=== PATIENT | male | born 1965 | race Caucasian/White ===

== ENCOUNTER 2016-11-24 20:41 | Emergency (ER) | payer OTHER ==
[2016-11-24 21:36] VITALS: BP 130/77; PULSE 102; TEMP 100; BMI 26.2
[2016-11-24] MEDS ORDERED: KETOROLAC TROMETHAMINE 30 MG/1 ML VIAL IM ONE (22:44)
--- NOTE | 2016-11-24 22:44 | PDOC ---
History of Present Illness <Sanket Wong - Last Filed: 11/24/16 22:40> - General History Source: Patient, Old Records Exam Limitations: No Limitations - History of Present Illness Initial Comments: 11/24/16 22:44 The patient is a 51 year old male, from [facility], with past medical history of schizophrenia and psych issues who presents to the ED with chronic back pain since age 14. The patient states that he is not on medication for his chronic medication. The patient states that he last saw a doctor for his pain one month ago and that he was advised to have surgery. The patient states that he would like to be admitted here and would like to have his surgery here too. He reports that he has a [place] john and would like to have it taken out and have a new one put in. The patient denies any trauma and has no neurological symptoms. <Cristian Murdock - Last Filed: 11/25/16 00:03> - General Chief Complaint: Chronic pain Stated Complaint: BACK PAIN Time Seen by Provider: 11/24/16 22:33 Past History - Psycho/Social/Smoking Cessation Hx Anxiety: No Suicidal Ideation: No Smoking History: Never smoked Have you smoked in the past 12 months: No Information on smoking cessation initiated: No Hx Alcohol Use: No Drug/Substance Use Hx: No Substance Use Type: None <Sanket Wong - Last Filed: 11/24/16 22:40> <Cristian Murdock - Last Filed: 11/25/16 00:03> - Past Medical History Allergies/Adverse Reactions: Allergies Allergy/AdvReac Type Severity Reaction Status Date / Time No Known Allergies Allergy Verified 02/18/16 01:06 Home Medications: Ambulatory Orders Benztropine Mesylate [Cogentin -] 0.5 mg PO DAILY 11/24/16 Cyclobenzaprine HCl [Flexeril -] 10 mg PO TID #7 tablet 11/24/16 Diclofenac Sodium/Misoprostol [Arthrotec 75 mg-200 Mcg Tab] 1 each PO BID #20 tablet. 11/24/16 [place] Carbonate [Eskalith -] 450 mg PO BID 11/24/16 Olanzapine [Zyprexa] 10 mg PO HS 11/24/16 Review of Systems - Review of Systems Able to Perform ROS?: Yes Musculoskeletal: Yes: Symptoms Reported, See HPI, Back Pain <Cristian Murdock - Last Filed: 11/25/16 00:03> *Physical Exam - Vital Signs Last Vital Signs Temp Pulse Resp BP Pulse Ox 100 F H 102 H 16 130/77 96 11/24/16 21:29 11/24/16 21:29 11/24/16 21:29 11/24/16 21:29 11/24/16 21:29 - Physical Exam General Appearance: Yes: Nourished, Appropriately Dressed. No: Apparent Distress HEENT: positive: Normal ENT Inspection Neck: positive: Supple. negative: Tender Respiratory/Chest: positive: Lungs Clear, Normal Breath Sounds. negative: Respiratory Distress Cardiovascular: positive: Regular Rhythm, Regular Rate, Tachycardia Gastrointestinal/Abdominal: positive: Soft. negative: Tender Musculoskeletal: positive: Normal Inspection, Muscle Spasm. negative: CVA Tenderness, Vertebral Tenderness Integumentary: positive: Normal Color Neurologic: positive: Fully Oriented, Alert, Motor Strength 5/5. negative: Normal Mood/Affect (flat affect), Sensory Deficit <Sanket Wong - Last Filed: 11/24/16 22:40> - Vital Signs Last Vital Signs Temp Pulse Resp BP Pulse Ox 100 F H 102 H 16 130/77 96 11/24/16 21:29 11/24/16 21:29 11/24/16 21:29 11/24/16 21:29 11/24/16 21:29 <Cristian Murdock - Last Filed: 11/25/16 00:03> Progress Note - Progress Note Progress Note: chronic back pain w/ no appropriate follow up or treatment will start on nsaid's and refer to clinic <Sanket Wong - Last Filed: 11/24/16 22:40> *DC/Admit/Observation/Transfer <Sanket Wong - Last Filed: 11/24/16 22:40> <Cristian Murdock - Last Filed: 11/25/16 00:03> Diagnosis at time of Disposition: Back pain Qualifiers: Back pain location: low back pain Chronicity: chronic Back pain laterality: unspecified Sciatica presence: without sciatica Qualified Code(s): M54.5 - Low back pain - Discharge Dispostion Disposition: HOME Condition at time of disposition: Stable - Prescriptions Prescriptions: Diclofenac Sodium/Misoprostol [Arthrotec 75 mg-200 Mcg Tab] 1 each PO BID #20 tablet. Cyclobenzaprine HCl [Flexeril -] 10 mg PO TID #7 tablet - Referrals Referrals: STAFF,NOT ON [Primary Care Provider] - Stanford Ayala MD [Staff Physician] - Call tomorrow - Patient Instructions Additional Instructions: TAKE MEDICATIONS PRESCRIBED AVOID PROLONG PERIODS OF TIME IN SAME POSITION DO NOT LIFT WEIGHTS ICE OR HEAT TO AREA (WHATEVER WORKS BETTER FOR YOU) CALL YOUR DOCTOR TO START PHYSICAL THERAPY SELINA LAY DOWN ON EITHER SIDE, KNEES BENT, STRAIGHT SPINE, CUSHION BETWEEN YUR KNEES RETURN IF WORSENING PAIN OR NEW SYMPTOMS LIKE INABILITY TO URINATE OR HOLD YOUR URINE
[2016-11-24] MEDS ORDERED: DEXAMETHASONE 4 MG TABLET (FP) PO ONE (22:45)
[2016-11-24] MEDS ORDERED: KETOROLAC TROMETHAMINE 30 MG/1 ML VIAL ONE (22:57)
== END 2016-11-25 00:23 | disposition home or self-care (01) ==
LOC: JER 20:41
PROC: 3E0233Z Introduction of Anti-inflammatory into Muscle, Percutaneous Approach (ICD-10-PCS; principal; 2016-11-24)
DX: M54.5 Low back pain (principal)
CPT/HCPCS: 96372; 99281-25

== ENCOUNTER 2017-11-07 03:22 | Emergency (ER) | payer OTHER ==
[2017-11-07 03:30] VITALS: TEMP 99.1; BMI 27.8
--- NOTE | 2017-11-07 03:50 | PDOC ---
History of Present Illness - General Chief Complaint: Cold Symptoms Stated Complaint: FLU LIKE SYMPTOMS Time Seen by Provider: 11/07/17 03:47 History Source: Patient - History of Present Illness Initial Comments: 11/07/17 04:50 52-year-old male with no medical history presents to the emergency department complaining of general malaise, subjective fever/chills x2d without headaches, dizziness, lightheadedness, facial pain, rhinorrhea, nasal congestion, earaches , cough, neck pain/stiffness, back pain, chest pain, shortness of breath, abdominal pains, flank pains, urinary symptoms. Patient states he had abdominal discomfort until he had a BM in the ED. Timing/Duration: reports: other (x2d ago) Past History - Past Medical History Allergies/Adverse Reactions: Allergies Allergy/AdvReac Type Severity Reaction Status Date / Time No Known Allergies Allergy Verified 11/07/17 03:24 Home Medications: Ambulatory Orders [place] Carbonate [Eskalith -] 600 mg PO BID 11/24/16 Olanzapine [Zyprexa] 20 mg PO HS 11/24/16 COPD: No Psychiatric Problems: Yes (anxiety, bipolar, schizo affective) Other medical history: chr back pain - Suicide/Smoking/Psychosocial Hx Smoking History: Never smoked Have you smoked in the past 12 months: No Hx Alcohol Use: No Drug/Substance Use Hx: No Substance Use Type: None Review of Systems - Review of Systems Able to Perform ROS?: Yes Comments:: 11/07/17 04:53 CONSTITUTIONAL: +generalized weakness, malaise Absent: fever, chills, diaphoresis, loss of appetite HEENT: Absent: rhinorrhea, nasal congestion, throat pain, throat swelling, difficulty swallowing, mouth swelling, ear pain, eye pain, visual Changes CARDIOVASCULAR: Absent: chest pain, loss of consciousness, palpitations, irregular heart rate, peripheral edema RESPIRATORY: Absent: cough, shortness of breath, dyspnea with exertion, orthopnea, wheezing, stridor, hemoptysis GASTROINTESTINAL: Absent: abdominal pain, abdominal distension, nausea, vomiting, diarrhea, constipation, melena, hematochezia GENITOURINARY: Absent: dysuria, frequency, urgency, hesitancy, hematuria, flank pain, genital pain MUSCULOSKELETAL: Absent: myalgia, arthralgia, joint swelling SKIN: Absent: rash, itching, pallor HEMATOLOGIC/IMMUNOLOGIC: Absent: easy bleeding, easy bruising, lymphadenopathy, frequent infections ENDOCRINE: Absent: unexplained weight gain, unexplained weight loss, heat intolerance, cold intolerance NEUROLOGIC: Absent: headache, focal weakness or paresthesias, dizziness, unsteady gait, seizure, mental status changes, bladder or bowel incontinence PSYCHIATRIC: Absent: anxiety, depression, suicidal or homicidal ideation, hallucinations. Is the patient limited Ecuadorean proficient: No *Physical Exam - Vital Signs Last Vital Signs Temp Pulse Resp BP Pulse Ox 99.1 F 97 H 18 132/87 96 11/07/17 03:23 11/07/17 03:23 11/07/17 03:23 11/07/17 03:23 11/07/17 03:23 - Physical Exam Comments: 11/07/17 04:53 GENERAL: Well developed, well nourished. Awake and alert. No acute distress. HEENT: Normocephalic, atraumatic. PERRLA, EOMI. No conjunctival pallor. Sclera are non- icteric. Moist mucous membranes. Oropharynx is clear. NECK: Supple. Full ROM. No JVD. Carotid pulses 2+ and symmetric, without bruits. No thyromegaly. No lymphadenopathy. CARDIOVASCULAR: Regular rate and rhythm. No murmurs, rubs, or gallops. Distal pulses are 2+ and symmetric. PULMONARY: No evidence of respiratory distress. Lungs clear to auscultation bilaterally. No wheezing, rales or rhonchi. ABDOMINAL: Soft. Non-tender. Non-distended. No rebound or guarding. No organomegaly. Normoactive bowel sounds. MUSCULOSKELETAL Normal range of motion at all joints. No bony deformities or tenderness. No CVA tenderness. EXTREMITIES: No cyanosis. No clubbing. No edema. No calf tenderness. SKIN: Warm and dry. Normal capillary refill. No rashes. No jaundice. NEUROLOGICAL: Alert, awake, appropriate. Cranial nerves 2-12 intact. No deficits to light touch and temperature in face, upper extremities and lower extremities. No motor deficits in the in face, upper extremities and lower extremities. Normoreflexic in the upper and lower extremities. Normal speech. Toes are down- going bilaterally. Gait is normal without ataxia. PSYCHIATRIC: Cooperative. Good eye contact. Appropriate mood and affect. ED Treatment Course - LABORATORY CBC & Chemistry Diagram: 11/07/17 04:11/07/17 04:09 *DC/Admit/Observation/Transfer Diagnosis at time of Disposition: Viral syndrome - Discharge Dispostion Disposition: HOME Condition at time of disposition: Stable Admit: No - Referrals - Patient Instructions Printed Discharge Instructions: DI for Viral Syndrome Additional Instructions: Rest Increase fluids Tylenol alternating with Motrin every 6 hours as needed for fever Return to the ER for severe/persistent/worsening symptoms - Post Discharge Activity
[2017-11-07 04:20] LABS: BASO % 0.8 % (0-2.0); EOS % 2.8 % (0-4.5); HEMATOCRIT 39.7 % (35.4-49); LYMPH % 28.8 % (8-40); MCHC 32.9 g/dl (32.0-35.9); MEAN CELL VOLUME 88.4 fl (80-96); MEAN PLT VOLUME 6.9 fl (7.5-11.1); MONO % 12.9 % (3.8-10.2); NEUT % 54.7 % (42.8-82.8); PLATELET COUNT 298 K/MM3 (134-434); RBC 4.49 M/mm3 (4.00-5.60); RDW 14.4 % (11.9-15.9); WHITE BLOOD COUNT 6.9 K/mm3 (4.0-10.0)
[2017-11-07 04:41] LABS: ALBUMIN 3.2 g/dl (3.4-5.0); ALK PHOS 73 U/L (45-117); AMYLASE 81 U/L (25-115); ANION GAP 7 (8-16); BILIRUBIN,TOTAL 0.2 mg/dL (0.2-1.0); BLOOD UREA NITROGEN 9 mg/dL (7-18); CALCIUM 8.1 mg/dL (8.5-10.1); CHLORIDE 105 mmol/L (98-107); CO2 31 mmol/L (21-32); CREATININE 0.9 mg/dL (0.7-1.3); GLUCOSE,RANDOM 106 mg/dL (74-106); LIPASE 166 U/L (73-393); POTASSIUM 3.5 mmol/L (3.5-5.1); SGOT/AST 17 U/L (15-37); SGPT/ALT 44 U/L (12-78); SODIUM 143 mmol/L (136-145); TOT PROT 6.7 g/dl (6.4-8.2)
[2017-11-07 05:56] VITALS: BP 116/90; PULSE 83
[2017-11-07 06:26] LABS: URINE APPEARANCE CLEAR; URINE BILIRUBIN NEGATIVE (NEGATIVE); URINE BLOOD NEGATIVE (NEGATIVE); URINE COLOR LTYELLOW; URINE GLUCOSE (UA) NEGATIVE (NEGATIVE); URINE KETONE TRACE (NEGATIVE); URINE LEUK ESTERASE NEGATIVE (NEGATIVE); URINE NITRITE NEGATIVE (NEGATIVE); URINE PROTEIN NEGATIVE (NEGATIVE); URINE UROBILINOGEN NEGATIVE mg/dL (0.2-1.0)
== END 2017-11-07 06:02 | disposition home or self-care (01) ==
LOC: JER 03:22
DX: J34.89 Other specified disorders of nose and nasal sinuses (principal); R09.81 Nasal congestion; F25.9 Schizoaffective disorder, unspecified; F41.9 Anxiety disorder, unspecified; F31.9 Bipolar disorder, unspecified
CPT/HCPCS: 36415; 80053; 81003; 82150; 83690; 85025; 87086; 87804; 99281-25

== ENCOUNTER 2017-11-09 00:32 | Emergency (ER) | payer OTHER ==
[2017-11-09 00:43] VITALS: BMI 21.1
--- NOTE | 2017-11-09 01:02 | PDOC ---
History of Present Illness <Tarah Olvera Diamond - Last Filed: 11/09/17 01:02> - General History Source: Patient Exam Limitations: No Limitations - History of Present Illness Initial Comments: 11/09/17 01:09 The patient is a 52 year old male with a significant past medical history of schizophrenia who presents to the ED with progressively worsening cold like symptoms for several days. Patient was recently seen in the ED yesterday for similar symptoms, flu culture was negative, and he was discharged home. He comes into the ED today because he states his symptoms have worsened. He reports headache, general malaise, nasal congestion, rhinorrhea, abdominal pain , shortness of breath, nausea, one episode of non bilious vomiting and watery stool. Denies any other symptoms. <Taco Ladd - Last Filed: 11/09/17 02:08> <Macrina Jensen - Last Filed: 11/09/17 03:46> - General Chief Complaint: Pain Stated Complaint: HEADACHE,STOMACH PAIN,RUNNY NOSE Time Seen by Provider: 11/09/17 00:40 Past History - Past Medical History COPD: No Psychiatric Problems: Yes (anxiety, bipolar, schizo affective) - Suicide/Smoking/Psychosocial Hx Smoking History: Never smoked Have you smoked in the past 12 months: No Information on smoking cessation initiated: No Hx Alcohol Use: No Drug/Substance Use Hx: No Substance Use Type: None <Jean Claude Olverajarocho Coronadoh - Last Filed: 11/09/17 01:02> <Taco Ladd - Last Filed: 11/09/17 02:08> <Macrina Jensen - Last Filed: 11/09/17 03:46> - Past Medical History Allergies/Adverse Reactions: Allergies Allergy/AdvReac Type Severity Reaction Status Date / Time No Known Allergies Allergy Verified 11/09/17 00:38 Home Medications: Ambulatory Orders [place] Carbonate [Eskalith -] 600 mg PO BID 11/24/16 Olanzapine [Zyprexa] 20 mg PO HS 11/24/16 Fluticasone Prop 0.05% Nasal [Flonase -] 1 - 2 spray NS BID #1 spray.pump Review of Systems - Review of Systems Able to Perform ROS?: Yes Comments:: 11/09/17 01:09 CONSTITUTIONAL: + malaise Absent: fever, chills, diaphoresis, generalized weakness,loss of appetite HEENT: + nasal congestion, rhinorrhea Absent: , throat pain, throat swelling, difficulty swallowing, mouth swelling, ear pain, eye pain, visual Changes CARDIOVASCULAR: Absent: chest pain, syncope, palpitations, irregular heart rate, lightheadedness , peripheral edema RESPIRATORY: + shortness of breath Absent: cough, dyspnea with exertion, orthopnea, wheezing, stridor, hemoptysis GASTROINTESTINAL: + abdominal pain, nausea, vomiting, diarrhea. Absent: abdominal distension, constipation, melena, hematochezia GENITOURINARY: Absent: dysuria, frequency, urgency, hesitancy, hematuria, flank pain, genital pain MUSCULOSKELETAL: Absent: myalgia, arthralgia, joint swelling SKIN: Absent: rash, itching, pallor HEMATOLOGIC/IMMUNOLOGIC: Absent: easy bleeding, easy bruising, lymphadenopathy, frequent infections ENDOCRINE: Absent: unexplained weight gain, unexplained weight loss, heat intolerance, cold intolerance NEUROLOGIC: + headache Absent: focal weakness or paresthesias, dizziness, unsteady gait, seizure, mental status changes, bladder or bowel incontinence PSYCHIATRIC: Absent: anxiety, depression, suicidal or homicidal ideation, hallucinations. All Other Systems: Reviewed and Negative <Taco Ladd - Last Filed: 11/09/17 02:08> *Physical Exam - Vital Signs Last Vital Signs Temp Pulse Resp BP Pulse Ox 98.7 F 89 18 127/87 95 11/09/17 00:47 11/09/17 00:47 11/09/17 00:47 11/09/17 00:47 11/09/17 00:47 <Tarah Olvera - Last Filed: 11/09/17 01:02> - Vital Signs Last Vital Signs Temp Pulse Resp BP Pulse Ox 98.7 F 89 18 127/87 95 11/09/17 00:47 11/09/17 00:47 11/09/17 00:47 11/09/17 00:47 11/09/17 00:47 - Physical Exam Comments: 11/09/17 01:42 GENERAL: Well developed, well nourished. Awake and alert. No acute distress. HEENT:+ nasal congestion Normocephalic, atraumatic. PERRLA, EOMI. No conjunctival pallor. Sclera are non- icteric. Moist mucous membranes. Oropharynx is clear. NECK: Supple. Full ROM. No JVD. Carotid pulses 2+ and symmetric, without bruits. No thyromegaly. NCo lymphadenopathy. CARDIOVASCULAR: Regular rate and rhythm. No murmurs, rubs, or gallops. Distal pulses are 2+ and symmetric. PULMONARY: + cough Lungs clear to auscultation bilaterally. No wheezing, rales or rhonchi. ABDOMINAL: Soft. Non-tender. Non-distended. No rebound or guarding. No organomegaly. Normoactive bowel sounds. MUSCULOSKELETAL Normal range of motion at all joints. No bony deformities or tenderness. No CVA tenderness. EXTREMITIES: No cyanosis. No clubbing. No edema. No calf tenderness. SKIN: Warm and dry. Normal capillary refill. No rashes. No jaundice. NEUROLOGICAL: Alert, awake, appropriate. Cranial nerves 2-12 intact. No deficits to light touch and temperature in face, upper extremities and lower extremities. No motor deficits in the in face, upper extremities and lower extremities. Normoreflexic in the upper and lower extremities. Normal speech. Toes are down- going bilaterally. Gait is normal without ataxia. PSYCHIATRIC: Cooperative. Good eye contact. Appropriate mood and affect. <Taco Ladd - Last Filed: 11/09/17 02:08> - Vital Signs Last Vital Signs Temp Pulse Resp BP Pulse Ox 98.7 F 89 18 127/87 95 11/09/17 00:47 11/09/17 00:47 11/09/17 00:47 11/09/17 00:47 11/09/17 00:47 <Macrina Jensen - Last Filed: 11/09/17 03:46> ED Treatment Course - ADDITIONAL ORDERS Additional order review: Laboratory Results 11/09/17 00:57 Urine Color Yellow Urine Appearance Clear Urine pH 6.0 Ur Specific [place] 1.018 Urine Protein Negative Urine Glucose (UA) Negative Urine Ketones Trace H Urine Blood Negative Urine Nitrite Negative Urine Bilirubin Negative Urine Urobilinogen 4.0 e.u/dl Ur Leukocyte Esterase Negative - RADIOLOGY Radiology Studies Ordered: Category Date Time Status SINUS CT W/O CONTRAST [CT] Stat CT Scan 11/09/17 02:29 Taken <Macrina Jensen - Last Filed: 11/09/17 03:46> Medical Decision Making - Medical Decision Making 11/09/17 03:24 Pt's labs and exam and CXR are normal. Pt has nasal congestion on CT scan and he will be treated with afrin in the ER and he will go home with EMT appt and I will give an ENT referral. <Macrina Jensen - Last Filed: 11/09/17 03:46> *DC/Admit/Observation/Transfer <Tarah Olvera - Last Filed: 11/09/17 01:02> - Attestations Scribe Attestion: 11/09/17 01:42 Documentation prepared by Taco Ladd, acting as medical coding auditor for Tarah Olvera MD <Taco Ladd - Last Filed: 11/09/17 02:08> - Discharge Dispostion Admit: No <Macrina Jensen - Last Filed: 11/09/17 03:46> Diagnosis at time of Disposition: Nasal congestion - Discharge Dispostion Disposition: HOME Condition at time of disposition: Stable - Patient Instructions Printed Discharge Instructions: DI for Nasal Congestion
[2017-11-09 01:11] LABS: URINE APPEARANCE CLEAR; URINE BILIRUBIN NEGATIVE (NEGATIVE); URINE BLOOD NEGATIVE (NEGATIVE); URINE COLOR YELLOW; URINE GLUCOSE (UA) NEGATIVE (NEGATIVE); URINE KETONE TRACE (NEGATIVE); URINE LEUK ESTERASE NEGATIVE (NEGATIVE); URINE NITRITE NEGATIVE (NEGATIVE); URINE PROTEIN NEGATIVE (NEGATIVE); URINE UROBILINOGEN 4.0 E.U/dl mg/dL (0.2-1.0)
[2017-11-09 01:13] VITALS: BP 127/87; PULSE 89; TEMP 98.7
[2017-11-09] MEDS ORDERED: OXYMETAZOLINE 0.05% NASAL SOLUTION 15 ML BOTTLE NS ONE (03:02)
== END 2017-11-09 05:01 | disposition home or self-care (01) ==
LOC: JER 00:32
DX: J34.89 Other specified disorders of nose and nasal sinuses (principal); R09.81 Nasal congestion
CPT/HCPCS: 70486-TC; 71046-TC; 81003; 99281-25

== ENCOUNTER 2017-12-05 16:19 | Emergency (ER) | payer OTHER ==
[2017-12-05 17:05] VITALS: BP 123/74; PULSE 92; TEMP 98.1; BMI 27.8
--- NOTE | 2017-12-05 17:16 | PDOC ---
History of Present Illness - General Chief Complaint: Pain Stated Complaint: PAIN Time Seen by Provider: 12/05/17 17:06 History Source: Patient Exam Limitations: No Limitations - History of Present Illness Initial Comments: CHIEF COMPLAINT: 52 y/o afebrile male c/o right hip pain for a few months, much worse this past week. HISTORY OF PRESENT ILLNESS: The patient states he went to [facility] last week and had an xray which showed arthritis. he was discharged with tramadol and a referral to see Dr. Greenwood, however, Dr. Greenwood doesn't take his insurance. He denies trauma to hip, slip and fall, f/c, n/v/d, back pain, numbness/tingling in extremities, saddle anesthesia and bowel/bladder incontinence. Past History - Past Medical History Allergies/Adverse Reactions: Allergies Allergy/AdvReac Type Severity Reaction Status Date / Time No Known Allergies Allergy Verified 11/09/17 00:38 Home Medications: Ambulatory Orders [place] Carbonate [Eskalith -] 600 mg PO BID 11/24/16 Olanzapine [Zyprexa] 20 mg PO HS 11/24/16 Fluticasone Prop 0.05% Nasal [Flonase -] 1 - 2 spray NS BID #1 spray.pump Cyclobenzaprine HCl [Flexeril 10 mg] 10 mg PO TID #20 tablet 12/05/17 COPD: No Psychiatric Problems: Yes (anxiety, bipolar, schizo affective) - Suicide/Smoking/Psychosocial Hx Smoking History: Never smoked Have you smoked in the past 12 months: No Information on smoking cessation initiated: No Hx Alcohol Use: No Drug/Substance Use Hx: No Substance Use Type: None Review of Systems - Review of Systems Able to Perform ROS?: Yes Constitutional: No: Symptoms Reported HEENTM: No: Symptoms Reported ABD/GI: No: Symptoms Reported : No: Symptoms Reported Musculoskeletal: Yes: Joint Pain (right hip). No: Back Pain *Physical Exam - Vital Signs Last Vital Signs Temp Pulse Resp BP Pulse Ox 98.1 F 92 H 20 123/74 12/05/17 17:01 12/05/17 17:01 12/05/17 17:01 12/05/17 17:01 - Physical Exam Comments: 52 y/o male, ambulatory to the ER with limp General Appearance: Yes: Nourished, Appropriately Dressed. No: Apparent Distress Musculoskeletal: positive: Other (Pain reproduced with palpation of right greater trochanter. Pain also reproduced with palpation of right lumbar paravertebral muscles. No midline lumbar vertebral TTP. No leg length discrepancy.). negative: CVA Tenderness, Vertebral Tenderness Neurologic: positive: hydraulic mechanic II-XII NML intact, Fully Oriented, Alert, Motor Strength 5/5. negative: Numbness, Sensory Deficit Medical Decision Making - Medical Decision Making A/P: 52 y/o male with progressively worsening arthritis of right hip as well as right low back pain. Will give patient flexeril in the ER. Will provide him with referral to Dr. Hensley who takes Medicaid. Will call rx for flexeril and suggested he take with tramadol. Pt instructed to return to the ER with any worsening or concerning symptoms. The patient verbalizes understanding of all instructions, has no further questions and is awaiting discharge. *DC/Admit/Observation/Transfer Diagnosis at time of Disposition: Hip pain, right, Arthritis Back pain Qualifiers: Back pain location: low back pain Chronicity: acute Back pain laterality: right Sciatica presence: with sciatica Sciatica laterality: sciatica of right side Qualified Code(s): M54.41 - Lumbago with sciatica, right side - Discharge Dispostion Disposition: HOME Condition at time of disposition: Good - Referrals Referrals: Favio Hensley MD [Staff Physician] - - Patient Instructions Printed Discharge Instructions: DI for Arthritis, DI for Back Pain With Sciatica Additional Instructions: Discharge Instructions: -A prescription for a muscle relaxer was sent to your pharmacy; please take it along with Tramadol -Please call Dr. Hensley on Thursday and schedule an appointment for Thursday between 9a-12p OR 12p-4p -Apply ice and heating pad to affected areas -Return to the ER with any worsening or concerning symptoms - Post Discharge Activity
[2017-12-05] MEDS ORDERED: CYCLOBENZAPRINE HCL 10 MG TABLET (FP) PO ONE (17:31)
[2017-12-05] MEDS ORDERED: CYCLOBENZAPRINE HCL 10 MG TABLET (FP) ONE (17:35)
== END 2017-12-05 18:09 | disposition home or self-care (01) ==
LOC: JERFT 16:19
DX: M13.851 Other specified arthritis, right hip (principal); M54.41 Lumbago with sciatica, right side
CPT/HCPCS: 99281-25

== ENCOUNTER 2018-01-27 19:27 | Emergency (ER) | payer OTHER ==
--- NOTE | 2018-01-27 19:37 | PDOC ---
Rapid Medical Evaluation Time Seen by Provider: 01/27/18 19:34 Medical Evaluation: Allergies Allergy/AdvReac Type Severity Reaction Status Date / Time No Known Allergies Allergy Verified 11/09/17 00:38 01/27/18 19:34 I have performed a brief in-person evaluation of this patient. The patient presents with a chief complaint of: tremors x "years", worse today, saw doc "Paresh" 2 weeks ago, denies drug/alcohol use, hx of schizophrenia/ bipolar Pertinent physical exam findings: tremors to b/l hands I have ordered the following: nothing The patient will proceed to the ED for further evaluation. Discharge Disposition - Diagnosis Tremor of both hands - Referrals - Patient Instructions - Post Discharge Activity
[2018-01-27 19:38] VITALS: BP 126/90; PULSE 71; TEMP 99.1; BMI 28.7
--- NOTE | 2018-01-27 20:14 | PDOC ---
History of Present Illness - General Chief Complaint: Tremors Stated Complaint: TREMORS Time Seen by Provider: 01/27/18 19:34 History Source: Patient - History of Present Illness Initial Comments: 01/27/18 21:51 52 year old male History of schizophrenia, anxiety complaining of hand tremors for the last 2 years worse over the last week. Patient one week ago was admitted at [facility] for auditory hallucinations. Patient reports that he is seeing visions of" myself in room 3 and then dying at home." " dont you see im shaking like a leaf". patient denies dizziness, diaphoresis, chest pain, NVD,abdominal pain, urinary symptoms. denies SI or HI. reports that visions do not tell him to hurt himself. patient reports that he has an appointment with Ingrid Bella in [facility] tomorrow at 9 am. patient is currently on abilify and Klonipin BID Past History - Past Medical History Allergies/Adverse Reactions: Allergies Allergy/AdvReac Type Severity Reaction Status Date / Time No Known Allergies Allergy Verified 01/27/18 19:35 Home Medications: Ambulatory Orders [place] Carbonate [Eskalith -] 600 mg PO BID 11/24/16 Olanzapine [Zyprexa] 20 mg PO HS 11/24/16 Fluticasone Prop 0.05% Nasal [Flonase -] 1 - 2 spray NS BID #1 spray.pump Cyclobenzaprine HCl [Flexeril 10 mg] 10 mg PO TID #20 tablet 12/05/17 COPD: No Psychiatric Problems: Yes (anxiety, bipolar, schizo affective) - Suicide/Smoking/Psychosocial Hx Smoking History: Never smoked Have you smoked in the past 12 months: No Information on smoking cessation initiated: No Hx Alcohol Use: No Drug/Substance Use Hx: No Substance Use Type: None *Physical Exam - Vital Signs Last Vital Signs Temp Pulse Resp BP Pulse Ox 99.1 F 71 16 126/90 100 01/27/18 19:35 01/27/18 19:35 01/27/18 19:35 01/27/18 19:35 01/27/18 19:35 - Physical Exam General Appearance: Yes: Appropriately Dressed Respiratory/Chest: positive: Normal Breath Sounds Cardiovascular: positive: Regular Rhythm, Regular Rate Gastrointestinal/Abdominal: positive: Normal Bowel Sounds, Soft Musculoskeletal: positive: Normal Inspection Extremity: positive: Normal Capillary Refill, Normal Inspection, Normal Range of Motion Integumentary: positive: Normal Color, Dry, Warm Neurologic: positive: Fully Oriented, Alert, Normal Mood/Affect, Motor Strength 5/5, Other (tremors noted to increased with talking. decreased tremors noted with distractions. ) ED Treatment Course - LABORATORY CBC & Chemistry Diagram: 01/27/18 21:17 01/27/18 21:17 Medical Decision Making - Medical Decision Making A: tremors/ anxiety with no SI or HI P: cbc cmp ua utox 01/27/18 22:41 patient received Klonipin PO. appears less anxious watching TV. patient is taking a cab home and has appointment with psychiatry at 9am. 01/27/18 22:44 *DC/Admit/Observation/Transfer Diagnosis at time of Disposition: Tremor of both hands, Anxiety - Discharge Dispostion Disposition: HOME - Referrals - Patient Instructions Printed Discharge Instructions: DI for Anxiety -- Adult Additional Instructions: please follow up with your psychiatrist tomorrow at 9am as planned. return to the ER if symptoms worsen. - Post Discharge Activity
[2018-01-27] MEDS ORDERED: clonazePAM 0.5 MG TABLET PO ONE (20:58)
[2018-01-27] MEDS ORDERED: clonazePAM 0.5 MG TABLET ONE (21:09)
[2018-01-27 21:30] LABS: BASO % 0.8 % (0-2.0); EOS % 0.6 % (0-4.5); HEMATOCRIT 39.5 % (35.4-49); HEMOGLOBIN 13.7 GM/dL (11.7-16.9); LYMPH % 31.8 % (8-40); MCH 30.6 pg (25.7-33.7); MCHC 34.8 g/dl (32.0-35.9); MEAN PLT VOLUME 7.1 fl (7.5-11.1); MONO % 8.5 % (3.8-10.2); NEUT % 58.3 % (42.8-82.8); PLATELET COUNT 390 K/MM3 (134-434); RBC 4.48 M/mm3 (4.00-5.60); RDW 14.7 % (11.9-15.9)
[2018-01-27 21:55] LABS: ANION GAP 6 (8-16); BLOOD UREA NITROGEN 15 mg/dL (7-18); CALCIUM 9.3 mg/dL (8.5-10.1); CHLORIDE 105 mmol/L (98-107); CO2 30 mmol/L (21-32); GLUCOSE,RANDOM 95 mg/dL (74-106); POTASSIUM 4.4 mmol/L (3.5-5.1); SGPT/ALT 107 U/L (12-78); SODIUM 141 mmol/L (136-145)
[2018-01-27 21:58] LABS: ALK PHOS 108 U/L (45-117); BILIRUBIN,TOTAL 0.1 mg/dL (0.2-1.0); SGOT/AST 44 U/L (15-37); TOT PROT 7.8 g/dl (6.4-8.2)
[2018-01-27 22:08] LABS: COCAINE, UR NEGATIVE ng/ml (CUTOFF=300); METHADONE, UR NEGATIVE ng/ml (CUTOFF=300); OPIATES, URI NEGATIVE ng/ml (CUTOFF=300); PHENCYCLIDINE,URINE NEGATIVE ng/ml (CUTOFF=25); URINE AMPHETAMINES NEGATIVE ng/ml (CUTOFF=500); URINE BARBITURATES NEGATIVE ng/ml (CUTOFF=200); URINE BENZODIAZEPINES NEGATIVE ng/ml (CUTOFF=200)
[2018-01-27 22:26] LABS: URINE APPEARANCE CLEAR; URINE BILIRUBIN NEGATIVE (<2.0 mg/dL); URINE BLOOD NEGATIVE (NEGATIVE); URINE COLOR LTYELLOW; URINE GLUCOSE (UA) NEGATIVE (NEGATIVE); URINE KETONE NEGATIVE (NEGATIVE); URINE LEUK ESTERASE NEGATIVE (NEGATIVE); URINE NITRITE NEGATIVE (NEGATIVE); URINE PROTEIN NEGATIVE (NEGATIVE); URINE UROBILINOGEN NEGATIVE mg/dL (0.2-1.0)
== END 2018-01-27 23:01 | disposition home or self-care (01) ==
LOC: JER 19:27
DX: R25.1 Tremor, unspecified (principal); F41.9 Anxiety disorder, unspecified; F20.9 Schizophrenia, unspecified
CPT/HCPCS: 36415; 80053; 80307; 81003; 85025; 99281-25

== ENCOUNTER 2018-01-30 05:18 | Emergency (ER) | payer OTHER ==
[2018-01-30 05:40] VITALS: BMI 28.7
[2018-01-30] MEDS ORDERED: ACETAMINOPHEN 1000 MG/100 ML VIAL (NON FORMULARY) IVPB ONE (05:47)
[2018-01-30] MEDS ORDERED: SODIUM CHLORIDE 1,000 ML IV STA (05:47)
--- NOTE | 2018-01-30 06:11 | PDOC ---
History of Present Illness - General Chief Complaint: Weakness Stated Complaint: DIZZINESS WEAKNESS CHEST PAIN Time Seen by Provider: 01/30/18 05:34 - History of Present Illness Initial Comments: 01/30/18 06:40 "Patient is a 52 year old male, from [facility], with a significant past medical history of Schizophrenia, chronic tremor, who presents to the ED with complaints of chest pain and palpitations that began last night at 11pm. Patient reports experiencing sudden onset of chest pain while at home, prompting the facility to send him to the ED for further evaluation. Pt also endorses chills and subjective fevers with nausea. Denies vomiting but endorses 2 episodes of nonbloody diarrhea today. Denies abdominal pain. Pt is very tremulous at time of interview but states this is chronic. Denies ETOH use, denies h/o withdrawal, denies other substance abuse. Allergies: None Social history: No smoking. No alcohol. No illicit drugs Surgical history: Left hip surgery. PMD: None Past History - Past Medical History Allergies/Adverse Reactions: Allergies Allergy/AdvReac Type Severity Reaction Status Date / Time No Known Allergies Allergy Verified 01/30/18 05:39 Home Medications: Ambulatory Orders [place] Carbonate [Eskalith -] 600 mg PO BID 11/24/16 Olanzapine [Zyprexa] 20 mg PO HS 11/24/16 Fluticasone Prop 0.05% Nasal [Flonase -] 1 - 2 spray NS BID #1 spray.pump Cyclobenzaprine HCl [Flexeril 10 mg] 10 mg PO TID #20 tablet 12/05/17 Penicillin V Potassium [Pen Vee K -] 500 mg PO QID #28 tablet 01/30/18 COPD: No Psychiatric Problems: Yes (anxiety, bipolar, schizo affective) - Suicide/Smoking/Psychosocial Hx Smoking History: Never smoked Have you smoked in the past 12 months: No Information on smoking cessation initiated: No Hx Alcohol Use: No Drug/Substance Use Hx: No Substance Use Type: None Review of Systems - Review of Systems Comments:: 01/30/18 06:55 "GENERAL/CONSTITUTIONAL: + fever and chills. No weakness. HEAD, EYES, EARS, NOSE AND THROAT: No change in vision. No ear pain or discharge. No sore throat. CARDIOVASCULAR: + chest pain and palpitations, no shortness of breath. RESPIRATORY: No cough, wheezing, or hemoptysis. GASTROINTESTINAL: + nausea, + diarrhea, no vomiting, constipation. GENITOURINARY: No dysuria, frequency, or change in urination. MUSCULOSKELETAL: No joint or muscle swelling or pain. No neck or back pain. SKIN: No rash NEUROLOGIC: No headache, vertigo, loss of consciousness, or change in strength/ sensation. ENDOCRINE: No increased thirst. No abnormal weight change. HEMATOLOGIC/LYMPHATIC: No anemia, easy bleeding, or history of blood clots. ALLERGIC/IMMUNOLOGIC: No hives or skin allergy. " *Physical Exam - Vital Signs Last Vital Signs Temp Pulse Resp BP Pulse Ox 98.9 F 116 H 20 138/88 96 01/30/18 05:39 01/30/18 05:39 01/30/18 05:39 01/30/18 05:39 01/30/18 05:39 - Physical Exam Comments: 01/30/18 06:56 "GENERAL: Awake, alert, and fully oriented, in no acute distress. HEAD: No signs of trauma EYES: PERRLA, EOMI, sclera anicteric, conjunctiva clear ENT: Auricles normal inspection, hearing grossly normal, nares patent, oropharynx clear without exudates. Moist mucosa NECK: Nontender, no stepoffs, Normal ROM, supple, no lymphadenopathy, JVD, or masses LUNGS: Breath sounds equal, clear to auscultation bilaterally. No wheezes, and no crackles HEART: Regular rate and rhythm, normal S1 and S2, no murmurs, rubs or gallops ABDOMEN: Soft, nontender, normoactive bowel sounds. No guarding, no rebound. No masses EXTREMITIES: Normal range of motion, no edema. No clubbing or cyanosis. No cords, erythema, or tenderness NEUROLOGICAL: Cranial nerves II through XII intact. 5/5 strength and sensation in all extremities, Normal speech, normal gait, normal cerebellar function SKIN: Warm, Dry, normal turgor, no rashes or lesions noted. " Heart Score/ECG Review - History History: Slightly suspicious - Electrocardiogram EKG: Normal - Age Age: 45-65 - Risk Factors Based on the list above the patient has:: No risk factors known - Troponin Troponin: </= normal limit - Score Heart Score - Total: 1 - ECG Impressions Comment:: 01/30/18 06:57 NSR, no CHIP/STDs,no TWIs, axis wnl, intervals wnl, rate 109 ED Treatment Course - LABORATORY CBC & Chemistry Diagram: 01/30/18 06:25 01/30/18 06:25 - RADIOLOGY Radiology Studies Ordered: Category Date Time Status CHEST PA & LAT [RAD] Stat Radiology 01/30/18 05:47 Ordered Medical Decision Making - Medical Decision Making 01/30/18 06:57 52 M with fevers, chills, chest pain, palpitations, nausea, and diarrhea. Vitals notable for tachycardia. Will w/u for infectious process, though pt afebrile in ED. Consider acute ETOH/benzo withdrawal vs acute sympathomimetic intoxication, as pt presented to ED 3 days ago with tremors and responded to benzos. Pt with no ischemic changes on EKG, but will r/o ACS with trops given complaint of chest pain. - Labs, trop, TSH - CXR, UA - IVF, tylenol - trial of benzos 01/30/18 07:05 Pt signed out to oncoming attending, pending labs, imaging, and re-evaluation *DC/Admit/Observation/Transfer Diagnosis at time of Disposition: Tremor of both hands, Dental caries - Discharge Dispostion Disposition: HOME Condition at time of disposition: Stable - Prescriptions Prescriptions: Penicillin V Potassium [Pen Vee K -] 500 mg PO QID #28 tablet - Referrals - Patient Instructions Printed Discharge Instructions: DI for Tooth Decay - Post Discharge Activity
[2018-01-30 06:34] LABS: BASO % 0.7 % (0-2.0); EOS % 1.6 % (0-4.5); HEMATOCRIT 38.5 % (35.4-49); LYMPH % 31.3 % (8-40); MCH 29.7 pg (25.7-33.7); MCHC 33.7 g/dl (32.0-35.9); MONO % 9.3 % (3.8-10.2); NEUT % 57.1 % (42.8-82.8); PLATELET COUNT 352 K/MM3 (134-434); RBC 4.38 M/mm3 (4.00-5.60); WHITE BLOOD COUNT 8.9 K/mm3 (4.0-10.0)
[2018-01-30] MEDS ORDERED: ACETAMINOPHEN INJECTION 100 ML IVPB ONE (06:38)
[2018-01-30 07:03] LABS: ALBUMIN 3.6 g/dl (3.4-5.0); ANION GAP 6 (8-16); BILIRUBIN,TOTAL 0.3 mg/dL (0.2-1.0); BLOOD UREA NITROGEN 12 mg/dL (7-18); CALCIUM 8.7 mg/dL (8.5-10.1); CHLORIDE 107 mmol/L (98-107); CO2 29 mmol/L (21-32); CREATININE 0.9 mg/dL (0.7-1.3); GLUCOSE,RANDOM 111 mg/dL (74-106); LIPASE 157 U/L (73-393); POTASSIUM 3.9 mmol/L (3.5-5.1); SGOT/AST 44 U/L (15-37); SGPT/ALT 94 U/L (12-78); SODIUM 142 mmol/L (136-145); TOT PROT 7.4 g/dl (6.4-8.2)
[2018-01-30 07:12] LABS: ALK PHOS 98 U/L (45-117)
[2018-01-30 07:50] LABS: URINE APPEARANCE CLEAR; URINE BILIRUBIN NEGATIVE (<2.0 mg/dL); URINE BLOOD NEGATIVE (NEGATIVE); URINE COLOR DKYELLOW; URINE GLUCOSE (UA) NEGATIVE (NEGATIVE); URINE KETONE TRACE (NEGATIVE); URINE LEUK ESTERASE NEGATIVE (NEGATIVE); URINE NITRITE NEGATIVE (NEGATIVE)
[2018-01-30 08:25] LABS: URINE PROTEIN 1+ (NEGATIVE)
[2018-01-30 08:47] LABS: URINE HYALINE CAST 6 /lpf; URINE MUCUS MANY
[2018-01-30 09:33] LABS: COCAINE, UR NEGATIVE ng/ml (CUTOFF=300); METHADONE, UR NEGATIVE ng/ml (CUTOFF=300); OPIATES, URI NEGATIVE ng/ml (CUTOFF=300); PHENCYCLIDINE,URINE NEGATIVE ng/ml (CUTOFF=25); URINE AMPHETAMINES NEGATIVE ng/ml (CUTOFF=500); URINE BARBITURATES NEGATIVE ng/ml (CUTOFF=200); URINE BENZODIAZEPINES NEGATIVE ng/ml (CUTOFF=200)
--- NOTE | 2018-01-30 09:56 | PDOC ---
*Physical Exam - Vital Signs Last Vital Signs Temp Pulse Resp BP Pulse Ox 98.9 F 116 H 20 138/88 96 01/30/18 05:39 01/30/18 05:39 01/30/18 05:39 01/30/18 05:39 01/30/18 05:39 ED Treatment Course - LABORATORY CBC & Chemistry Diagram: 01/30/18 06:25 01/30/18 06:25 - ADDITIONAL ORDERS Additional order review: Laboratory Results 01/30/18 01/30/18 01/30/18 07:27 07:27 06:25 Sodium 142 Potassium 3.9 Chloride 107 Carbon Dioxide 29 Anion Gap 6 L BUN 12 Creatinine 0.9 Creat Clearance w eGFR > 60 Random Glucose 111 H Calcium 8.7 Total Bilirubin 0.3 D AST 44 H ALT 94 H Alkaline Phosphatase 98 Creatine Kinase 618 H Troponin I < 0.02 Total Protein 7.4 Albumin 3.6 Lipase 157 TSH 1.99 Urine Color Dkyellow Urine Appearance Clear Urine pH 5.0 D Ur Specific [place] 1.034 Urine Protein 1+ H Urine Glucose (UA) Negative Urine Ketones Trace H Urine Blood Negative Urine Nitrite Negative Urine Bilirubin Negative Urine Urobilinogen 2.0 Ur Leukocyte Esterase Negative Urine WBC (Auto) 1 Urine RBC (Auto) None Hyaline Casts 6 Urine Mucus Many Opiates Screen Negative Methadone Screen Negative Barbiturate Screen Negative Phencyclidine Screen Negative Ur Amphetamines Screen Negative MDMA (Ecstasy) Screen Positive Benzodiazepines Screen Negative Cocaine Screen Negative U Marijuana (THC) Screen Negative 01/30/18 06:25 Sodium Potassium Chloride Carbon Dioxide Anion Gap BUN Creatinine Creat Clearance w eGFR Random Glucose Calcium Total Bilirubin AST ALT Alkaline Phosphatase Creatine Kinase Cancelled Troponin I Cancelled Total Protein Albumin Lipase TSH Urine Color Urine Appearance Urine pH Ur Specific [place] Urine Protein Urine Glucose (UA) Urine Ketones Urine Blood Urine Nitrite Urine Bilirubin Urine Urobilinogen Ur Leukocyte Esterase Urine WBC (Auto) Urine RBC (Auto) Hyaline Casts Urine Mucus Opiates Screen Methadone Screen Barbiturate Screen Phencyclidine Screen Ur Amphetamines Screen MDMA (Ecstasy) Screen Benzodiazepines Screen Cocaine Screen U Marijuana (THC) Screen 01/30/18 06:25 RBC 4.38 MCV 88.0 MCHC 33.7 RDW 15.0 MPV 7.0 L Neutrophils % 57.1 Lymphocytes % 31.3 Monocytes % 9.3 Eosinophils % 1.6 D Basophils % 0.7 - Medications Given in the ED: ED Medications Discontinued Medications Generic Name Dose Route Start Last Admin Trade Name Jaxson PRN Reason Stop Dose Admin Acetaminophen 1,000 mg 01/30/18 05:47 01/30/18 06:48 Ofirmev Injection - IVPB 01/30/18 05:48 1,000 mg ONCE ONE Administration Sodium Chloride 1,000 mls @ 1,000 mls/hr 01/30/18 05:47 01/30/18 06:48 Normal Saline - IV 01/30/18 06:46 1,000 mls/hr ASDIR STA Administration Lorazepam 1 mg 01/30/18 07:00 01/30/18 07:31 Ativan Injection - IVPUSH 01/30/18 07:01 1 mg ONCE ONE Administration Medical Decision Making - Medical Decision Making 01/30/18 13:52 Results d/w patient. He states he does not use drugs and has not taken any unknown substances. He has tremors in his hands which are baseline. Serial troponins are negative. He has tooth decay on R side, recommended outpatient dental f/u. Stable for DC home. *DC/Admit/Observation/Transfer Diagnosis at time of Disposition: Tremor of both hands, Dental caries - Discharge Dispostion Disposition: HOME Condition at time of disposition: Stable Admit: No - Prescriptions Prescriptions: Penicillin V Potassium [Pen Vee K -] 500 mg PO QID #28 tablet - Referrals - Patient Instructions Printed Discharge Instructions: DI for Tooth Decay - Post Discharge Activity
[2018-01-30 14:49] VITALS: BP 138/98; PULSE 100; TEMP 98.6
--- NOTE | 2018-02-01 12:51 | EKG ---
Test Reason : Blood Pressure : / mmHG Vent. Rate : 109 BPM Atrial Rate : 109 BPM P-R Int : 134 ms QRS Dur : 078 ms QT Int : 336 ms P-R-T Axes : 051 063 037 degrees QTc Int : 452 ms SINUS TACHYCARDIA OTHERWISE NORMAL ECG NO PREVIOUS ECGS AVAILABLE Confirmed by LINO MARTIN MD ([id number]) on 02/01/2018 12:51:10 PM Referred By: Confirmed By:LINO MARTIN MD
== END 2018-01-30 15:13 | disposition home or self-care (01) ==
LOC: JER 05:18
PROC: 3E033NZ Introduction of Analgesics, Hypnotics, Sedatives into Peripheral Vein, Percutaneous Approach (ICD-10-PCS; principal; 2018-01-30)
PROC: 3E033NZ Introduction of Analgesics, Hypnotics, Sedatives into Peripheral Vein, Percutaneous Approach (ICD-10-PCS; 2018-01-30)
DX: G25.2 Other specified forms of tremor (principal); F41.9 Anxiety disorder, unspecified; F31.9 Bipolar disorder, unspecified; F20.9 Schizophrenia, unspecified
CPT/HCPCS: 36415; 71046-TC-FY; 80053; 80307; 81003; 81015; 82550; 82553; 83690; 84443; 84484; 85025; 93005; 93010; 96374; 99285-25; G0480; J0131; J7030

== ENCOUNTER 2018-02-18 19:59 | Emergency (ER) | payer OTHER ==
[2018-02-18 20:27] VITALS: PULSE 89; BMI 27.3
--- NOTE | 2018-02-18 21:09 | PDOC ---
History of Present Illness - General History Source: Patient Exam Limitations: No Limitations - History of Present Illness Initial Comments: 02/18/18 21:24 The patient is a 52 year old male, with a significant past medical history of Schizophrenia who presents to the emergency department with, 4 hours of nausea, vomiting, chest pain, and abdominal pain. The patient describes his chest pain as pressure-like, non-radiating, with associated shortness of breath. He reports similar episodes in the past. He denies having hypertension and diabetes. He denies any recent fevers, chills , headache or dizziness. He denies any recent diarrhea or constipation. He denies any recent dysuria, frequency, urgency or hematuria. Allergies: NKA Social History: Nonsmoker. Denies EtOH use and recreational drug use. <Sosa Schreiber - Last Filed: 02/18/18 23:59> - General History Source: Patient <JermainAlistair hernandez - Last Filed: 02/19/18 01:30> - General Chief Complaint: Nausea/Vomiting Stated Complaint: VOMITING Time Seen by Provider: 02/18/18 21:07 Past History <Sosa Schreiber - Last Filed: 02/18/18 23:59> - Past Medical History COPD: No Psychiatric Problems: Yes (anxiety, bipolar, schizo affective) - Suicide/Smoking/Psychosocial Hx Smoking History: Never smoked Have you smoked in the past 12 months: No Hx Alcohol Use: No Drug/Substance Use Hx: No Substance Use Type: None <Alistair Garvey - Last Filed: 02/19/18 01:30> - Past Medical History Allergies/Adverse Reactions: Allergies Allergy/AdvReac Type Severity Reaction Status Date / Time No Known Allergies Allergy Verified 01/30/18 05:39 Home Medications: Ambulatory Orders [place] Carbonate [Eskalith -] 600 mg PO BID 11/24/16 Olanzapine [Zyprexa] 20 mg PO HS 11/24/16 Fluticasone Prop 0.05% Nasal [Flonase -] 1 - 2 spray NS BID #1 spray.pump Cyclobenzaprine HCl [Flexeril 10 mg] 10 mg PO TID #20 tablet 12/05/17 Penicillin V Potassium [Pen Vee K -] 500 mg PO QID #28 tablet 01/30/18 Ondansetron [Zofran *Odt*] 4 mg SL TID #30 od.tablet 02/19/18 Review of Systems - Review of Systems Able to Perform ROS?: Yes Comments:: 02/18/18 21:25 CONSTITUTIONAL: Absent: fever, no chills, no fatigue EYES: Absent: visual changes ENT: Absent: ear pain, no sore throat CARDIOVASCULAR: Present: Chest pain. Absent: no palpitations RESPIRATORY: Present: SOB Absent: cough GI: Present: Nausea, vomiting, abdominal pain. Absent: no constipation, no diarrhea GENITOURINARY: Absent: dysuria, no frequency, no hematuria MUSKULOSKELETAL: Absent: back pain, no arthralgia, no myalgia SKIN: Absent: rash NEURO: Absent: headache All Other Systems: Reviewed and Negative <Sosa Schreiber - Last Filed: 02/18/18 23:59> *Physical Exam - Vital Signs Last Vital Signs Temp Pulse Resp BP Pulse Ox 98 F 89 120/80 99 02/18/18 20:00 02/18/18 20:00 02/18/18 20:00 02/18/18 20:00 - Physical Exam Comments: 02/18/18 21:27 +GENERAL: Mild distress. Diaphoretic. Well-nourished. HEENT: Normocephalic, atraumatic. PERRL, EOM intact. CARDIOVASCULAR: Normal S1, S2. Regular rate and rhythm. PULMONARY: Clear to auscultation bilaterally. ABDOMEN: Soft, non-distended, non-tender. EXTREMITIES: Normal ROM in all four extremities. No gross deformities. SKIN: Warm, dry. No rash NEUROLOGICAL: No focal neurological deficits. <Sosa Schreiber - Last Filed: 02/18/18 23:59> - Vital Signs Last Vital Signs Temp Pulse Resp BP Pulse Ox 98 F 89 120/80 99 02/18/18 20:00 02/18/18 20:00 02/18/18 20:00 02/18/18 20:00 <Alistair Garvey - Last Filed: 02/19/18 01:30> ED Treatment Course - LABORATORY CBC & Chemistry Diagram: 02/18/18 22:00 02/18/18 22:00 <Sosa Schreiber - Last Filed: 02/18/18 23:59> - LABORATORY CBC & Chemistry Diagram: 02/18/18 22:00 02/18/18 22:00 <Alistair Garvey - Last Filed: 02/19/18 01:30> Medical Decision Making - Medical Decision Making 02/18/18 23:59 EKG performed at: 18 Feb 2018 at 23:36:57 Vent Rate 89 bpm NC interval 156 ms QRS duration 84 ms QT/QTc 348/423 ms P-R-T axes 50 60 48 Normal sinus rhythm. Possible left atrial enlargement Early repolarization Borderline ECG <Sosa Schreiber - Last Filed: 02/18/18 23:59> - Medical Decision Making 02/19/18 01:29 Dr. Garvey: The scribe's documentation has been prepared under my direction and personally reviewed by me in its entirery. I confirm that the note above accurately reflects all work, treatment, procedures, and medical decision making performed by me. Patient now feel better. pt was able to tolerate food and water. Pt will be discharge. <Alistair Garvey - Last Filed: 02/19/18 01:30> *DC/Admit/Observation/Transfer - Attestations Scribe Attestion: 02/18/18 21:28 Documentation prepared by Sosa Schreiber, acting as medical billing manager for Alistair Garvey DO. <Sosa Schreiber - Last Filed: 02/18/18 23:59> - Discharge Dispostion Admit: No <Alistair Garvey - Last Filed: 02/19/18 01:30> Diagnosis at time of Disposition: Abdominal pain Qualifiers: Abdominal location: epigastric Qualified Code(s): R10.13 - Epigastric pain Nausea & vomiting Qualifiers: Vomiting type: unspecified Vomiting Intractability: non-intractable Qualified Code(s): R11.2 - Nausea with vomiting, unspecified - Discharge Dispostion Disposition: HOME Condition at time of disposition: Stable - Referrals Referrals: Bola Carter MD [Staff Physician] - Bony Patiño MD [Staff Physician] - - Patient Instructions Printed Discharge Instructions: DI for Nausea -- Adult, DI for Vomiting -- Adult, DI for Abdominal Pain-Adult
[2018-02-18] MEDS ORDERED: ONDANSETRON 4 MG/2 ML VIAL IVPUSH STA (21:10)
[2018-02-18] MEDS ORDERED: ASPIRIN 81 MG CHEWABLE TABLETS PO ONE (21:42)
[2018-02-18 22:13] LABS: BASO % 0.9 % (0-2.0); EOS % 0.9 % (0-4.5); HEMATOCRIT 41.3 % (35.4-49); LYMPH % 35.3 % (8-40); MCH 30.2 pg (25.7-33.7); MCHC 33.9 g/dl (32.0-35.9); MEAN CELL VOLUME 89.1 fl (80-96); MEAN PLT VOLUME 7.2 fl (7.5-11.1); MONO % 6.8 % (3.8-10.2); NEUT % 56.1 % (42.8-82.8); PLATELET COUNT 385 K/MM3 (134-434); RBC 4.63 M/mm3 (4.00-5.60); RDW 14.2 % (11.9-15.9); WHITE BLOOD COUNT 9.3 K/mm3 (4.0-10.0)
[2018-02-18 22:32] LABS: INR 0.98 (0.82-1.09); PROTHROMBIN TIME (PATIENT) 11.1 SEC (9.7-13.0)
[2018-02-18 22:43] LABS: AMYLASE 75 U/L (25-115); LIPASE 187 U/L (73-393)
[2018-02-18 22:44] LABS: N-TERMINAL BNP 10.99 pg/ml (5-125)
[2018-02-18 22:52] LABS: MAGNESIUM 2.4 mg/dL (1.8-2.4)
[2018-02-19 00:23] LABS: ANION GAP 13 (8-16); BILIRUBIN,TOTAL 0.2 mg/dL (0.2-1.0); BLOOD UREA NITROGEN 10 mg/dL (7-18); CHLORIDE 108 mmol/L (98-107); CO2 23 mmol/L (21-32); CREATININE 1.1 mg/dL (0.7-1.3); GLUCOSE,RANDOM 98 mg/dL (74-106); SGPT/ALT 69 U/L (12-78); SODIUM 144 mmol/L (136-145); TOT PROT 7.8 g/dl (6.4-8.2)
[2018-02-19 00:24] LABS: ALK PHOS 107 U/L (45-117)
[2018-02-19 00:25] LABS: POTASSIUM 4.6 mmol/L (3.5-5.1); SGOT/AST 35 U/L (15-37)
[2018-02-19 01:44] VITALS: BP 128/76; TEMP 98.2
--- NOTE | 2018-02-19 09:32 | EKG ---
Test Reason : Blood Pressure : / mmHG Vent. Rate : 089 BPM Atrial Rate : 089 BPM P-R Int : 156 ms QRS Dur : 084 ms QT Int : 348 ms P-R-T Axes : 050 060 048 degrees QTc Int : 423 ms NORMAL SINUS RHYTHM POSSIBLE LEFT ATRIAL ENLARGEMENT EARLY REPOLARIZATION WHEN COMPARED WITH ECG OF 30-JAN-2018 06:51, NO SIGNIFICANT CHANGE WAS FOUND Confirmed by CIERRA GUERRERO MD ([id number]) on 02/19/2018 9:32:15 AM Referred By: Confirmed By:CIERRA GUERRERO MD
== END 2018-02-19 01:44 | disposition home or self-care (01) ==
LOC: JER 19:59
PROC: 3E033GC Introduction of Other Therapeutic Substance into Peripheral Vein, Percutaneous Approach (ICD-10-PCS; principal; 2018-02-18)
DX: R10.13 Epigastric pain (principal); R11.2 Nausea with vomiting, unspecified
CPT/HCPCS: 36415; 80053; 82150; 82550; 82553; 83690; 83735; 83880; 84484; 85025; 85610; 86850; 86900; 86901; 93005; 93010; 99282-25

== ENCOUNTER 2018-03-01 00:43 | Emergency (ER) | payer OTHER ==
[2018-03-01 00:47] VITALS: BP 136/80; PULSE 94; TEMP 97.9; BMI 27.8
--- NOTE | 2018-03-01 01:06 | PDOC ---
History of Present Illness - History of Present Illness Initial Comments: 03/01/18 01:12 Patient is a 52 M, who was BIBA for abdominal pain with PMHx of Bipolar disorder and Schizophrenia, denies any surgical history. He states that he vomited a total of 3 times today (6, 8, 9 o'clock). He also reports a sore throat, runny nose, and cough. He was here 11 days ago for abdominal pain, () his labs were normal. Denies any fever, chills, chest pain, shortness of breath, dysuria, or diarrhea. PCP: Dr. Arlyn Stewart 03/01/18 01:20 <Jenni Snyder - Last Filed: 03/01/18 01:12> <Tarah Olvera - Last Filed: 03/01/18 02:43> - General Chief Complaint: Pain, Acute Stated Complaint: ABDOMINAL PAIN Time Seen by Provider: 03/01/18 00:56 Past History <Jenni Snyder - Last Filed: 03/01/18 01:12> - Past Medical History COPD: No Psychiatric Problems: Yes (anxiety, bipolar, schizo affective) - Suicide/Smoking/Psychosocial Hx Smoking History: Unknown if ever smoked Have you smoked in the past 12 months: No Hx Alcohol Use: No Drug/Substance Use Hx: No Substance Use Type: None <Tarah Olvera - Last Filed: 03/01/18 02:43> - Past Medical History Allergies/Adverse Reactions: Allergies Allergy/AdvReac Type Severity Reaction Status Date / Time No Known Allergies Allergy Verified 03/01/18 00:45 Home Medications: Ambulatory Orders [place] Carbonate [Eskalith -] 600 mg PO BID 11/24/16 Olanzapine [Zyprexa] 20 mg PO HS 11/24/16 Review of Systems - Review of Systems Comments:: 03/01/18 01:14 CONSTITUTIONAL: Absent: fever, chills, diaphoresis, generalized weakness, malaise, loss of appetite HEENT: Present: rhinorrhea, nasal congestion, sore throat Absent:throat swelling, difficulty swallowing, mouth swelling, ear pain, eye pain, visual changes CARDIOVASCULAR: Absent: chest pain, syncope, palpitations, irregular heart rate, lightheadedness , peripheral edema RESPIRATORY: Present: cough Absent: shortness of breath, dyspnea with exertion, orthopnea, wheezing, stridor, hemoptysis GASTROINTESTINAL: Present: mild epigastric pain, vomitting (3x) Absent: abdominal distension, nausea, diarrhea, constipation, melena, hematochezia GENITOURINARY: Absent: dysuria, frequency, urgency, hesitancy, hematuria, flank pain, genital pain MUSCULOSKELETAL: Absent: myalgia, arthralgia, joint swelling SKIN: Absent: rash, itching, pallor HEMATOLOGIC/IMMUNOLOGIC: Absent: easy bleeding, easy bruising, lymphadenopathy, frequent infections ENDOCRINE: Absent: unexplained weight gain, unexplained weight loss, heat intolerance, cold intolerance NEUROLOGIC: Absent: headache, focal weakness or paresthesias, dizziness, unsteady gait, seizure, mental status changes, bladder or bowel incontinence <Jenni Snyder - Last Filed: 03/01/18 01:12> *Physical Exam - Vital Signs Last Vital Signs Temp Pulse Resp BP Pulse Ox 97.9 F 94 H 22 136/80 98 03/01/18 00:45 03/01/18 00:45 03/01/18 00:45 03/01/18 00:45 03/01/18 00:45 - Physical Exam Comments: 03/01/18 01:18 GENERAL: Well developed, well nourished. Awake and alert. No acute distress. HEENT: Normocephalic, atraumatic. PERRLA, EOMI. No conjunctival pallor. Sclera are non- icteric. Moist mucous membranes. Oropharynx is mildy errythematous without exudates. NECK: Supple. Full ROM. No JVD. Carotid pulses 2+ and symmetric, without bruits. No thyromegaly. No lymphadenopathy. CARDIOVASCULAR: Regular rate and rhythm. No murmurs, rubs, or gallops. Distal pulses are 2+ and symmetric. PULMONARY: No evidence of respiratory distress. Lungs clear to auscultation bilaterally. No wheezing, rales or rhonchi. ABDOMINAL: Soft. Mild epigastric tenderness. Non-distended. No rebound or guarding. No organomegaly. Normoactive bowel sounds. MUSCULOSKELETAL Normal range of motion at all joints. No bony deformities or tenderness. No CVA tenderness. EXTREMITIES: No cyanosis. No clubbing. No edema. No calf tenderness. SKIN: Warm and dry. Normal capillary refill. No rashes. No jaundice. NEUROLOGICAL: Alert, awake, appropriate. Cranial nerves 2-12 intact. No deficits to light touch and temperature in face, upper extremities and lower extremities. No motor deficits in the in face, upper extremities and lower extremities. Normoreflexic in the upper and lower extremities. Normal speech. Toes are down-going bilaterally. Gait is normal without ataxia. PSYCHIATRIC: Cooperative. Flat affect <Jenni Snyder - Last Filed: 03/01/18 01:12> - Vital Signs Last Vital Signs Temp Pulse Resp BP Pulse Ox 97.9 F 94 H 22 136/80 98 03/01/18 00:45 03/01/18 00:45 03/01/18 00:45 03/01/18 00:45 03/01/18 00:45 <Tarah Olvera - Last Filed: 03/01/18 02:43> ED Treatment Course - LABORATORY CBC & Chemistry Diagram: 03/01/18 01:20 03/01/18 01:20 <Tarah Olvera - Last Filed: 03/01/18 02:43> Medical Decision Making - Medical Decision Making 03/01/18 02:08 52 yo male vomited x 3 tonight. No fever,no chills,no diarrhea cbc wnl chemistries ast,alt sl bumped pt now wants to eat because he is hungry plan po challenge <Tarah Olvera - Last Filed: 03/01/18 02:43> *DC/Admit/Observation/Transfer - Attestations Scribe Attestion: 03/01/18 01:20 Documentation prepared by Jenni Snyder, acting as medical staffing coordinator for Tarah Olvera MD. <Jenni Snyder - Last Filed: 03/01/18 01:12> <Tarah Olvera - Last Filed: 03/01/18 02:43> Diagnosis at time of Disposition: Nausea & vomiting Qualifiers: Vomiting type: unspecified Vomiting Intractability: non-intractable Qualified Code(s): R11.2 - Nausea with vomiting, unspecified - Discharge Dispostion Disposition: HOME Condition at time of disposition: Stable - Patient Instructions Printed Discharge Instructions: DI for Vomiting -- Adult Additional Instructions: please follow up with your regular physician
[2018-03-01] MEDS ORDERED: ONDANSETRON 4 MG/2 ML VIAL IVPUSH STA (01:09)
[2018-03-01] MEDS ORDERED: ONDANSETRON 4 MG/2 ML VIAL ONE (01:13)
[2018-03-01 01:40] LABS: BASO % 1.1 % (0-2.0); EOS % 1.9 % (0-4.5); HEMATOCRIT 38.5 % (35.4-49); HEMOGLOBIN 13.3 GM/dL (11.7-16.9); LYMPH % 35.3 % (8-40); MCH 30.7 pg (25.7-33.7); MCHC 34.6 g/dl (32.0-35.9); MEAN CELL VOLUME 88.8 fl (80-96); MEAN PLT VOLUME 7.5 fl (7.5-11.1); NEUT % 53.7 % (42.8-82.8); PLATELET COUNT 297 K/MM3 (134-434); RBC 4.33 M/mm3 (4.00-5.60); RDW 14.4 % (11.9-15.9); WHITE BLOOD COUNT 9.2 K/mm3 (4.0-10.0)
[2018-03-01 01:51] LABS: URINE APPEARANCE CLEAR; URINE BILIRUBIN NEGATIVE (<2.0 mg/dL); URINE COLOR YELLOW; URINE GLUCOSE (UA) NEGATIVE (NEGATIVE); URINE KETONE NEGATIVE (NEGATIVE); URINE LEUK ESTERASE NEGATIVE (NEGATIVE); URINE NITRITE NEGATIVE (NEGATIVE); URINE PROTEIN NEGATIVE (NEGATIVE); URINE UROBILINOGEN NEGATIVE mg/dL (0.2-1.0)
[2018-03-01 02:01] LABS: ALBUMIN 3.8 g/dl (3.4-5.0); ANION GAP 9 (8-16); BILIRUBIN,TOTAL 0.2 mg/dL (0.2-1.0); BLOOD UREA NITROGEN 15 mg/dL (7-18); CALCIUM 9.1 mg/dL (8.5-10.1); CHLORIDE 105 mmol/L (98-107); CO2 28 mmol/L (21-32); GLUCOSE,RANDOM 105 mg/dL (74-106); LIPASE 189 U/L (73-393); POTASSIUM 4.3 mmol/L (3.5-5.1); SGOT/AST 45 U/L (15-37); SGPT/ALT 96 U/L (12-78); SODIUM 142 mmol/L (136-145)
[2018-03-01 02:02] LABS: ALK PHOS 99 U/L (45-117)
[2018-03-18] MEDS ORDERED: KETOROLAC TROMETHAMINE 30 MG/1 ML VIAL ONE (00:35)
[2018-04-04] MEDS ORDERED: clonazePAM 0.5 MG TABLET ONE (11:44)
== END 2018-03-01 02:51 | disposition home or self-care (01) ==
LOC: JER 00:43
PROC: 3E033GC Introduction of Other Therapeutic Substance into Peripheral Vein, Percutaneous Approach (ICD-10-PCS; principal; 2018-03-01)
DX: R11.2 Nausea with vomiting, unspecified (principal)
CPT/HCPCS: 36415; 80053; 81003; 83690; 85025; 96374; 99282-25

== ENCOUNTER 2018-03-17 22:49 | Emergency (ER) | payer OTHER ==
[2018-03-17 22:57] VITALS: BP 107/75; PULSE 80; TEMP 97.6; BMI 25.1
[2018-03-18] MEDS ORDERED: KETOROLAC TROMETHAMINE 30 MG/1 ML VIAL IM ONE (00:21)
--- NOTE | 2018-03-18 00:27 | PDOC ---
History of Present Illness - General Chief Complaint: Back Pain Stated Complaint: BACK PAIN Time Seen by Provider: 03/18/18 00:09 - History of Present Illness Initial Comments: 03/18/18 00:31 The patient is a 52 year old male with history of bipolar d/o, schizophrenia, chronic lower back pain who presents to the ED complaining of worsening lower back pain today. Pt states he has had chronic back pain for about 20 years. Today, he was sitting on his couch doing nothing in particular when his pain became worse. He states the pain radiates down his left lower extremity and is associated with mild numbness. Pain is worse with leaning over. He states his chronic pain is typically improved with sitting. The patient denies any recent trauma or injury. He denies seeing any provider for this issue in the past. He states he has been taking Tylenol and Motrin without apparent relief. Denies weakness his legs, denies incontinence, denies saddle anesthesia. Denies any difficulty ambulating. Past History - Past Medical History Allergies/Adverse Reactions: Allergies Allergy/AdvReac Type Severity Reaction Status Date / Time No Known Allergies Allergy Verified 03/17/18 22:55 Home Medications: Ambulatory Orders [place] Carbonate [Eskalith -] 600 mg PO BID 11/24/16 Olanzapine [Zyprexa] 20 mg PO HS 11/24/16 Naproxen 500 mg PO BID PRN #14 tablet 03/18/18 COPD: No Psychiatric Problems: Yes (anxiety, bipolar, schizo affective) - Suicide/Smoking/Psychosocial Hx Smoking History: Never smoked Have you smoked in the past 12 months: No Information on smoking cessation initiated: No Hx Alcohol Use: No Drug/Substance Use Hx: No Substance Use Type: None Review of Systems - Review of Systems Comments:: 03/18/18 00:32 "GENERAL/CONSTITUTIONAL: No fever or chills. No weakness. HEAD, EYES, EARS, NOSE AND THROAT: No change in vision. No ear pain or discharge. No sore throat. CARDIOVASCULAR: No chest pain or shortness of breath. RESPIRATORY: No cough, wheezing, or hemoptysis. GASTROINTESTINAL: No nausea, vomiting, diarrhea or constipation. GENITOURINARY: No dysuria, frequency, or change in urination. MUSCULOSKELETAL: +Lower back pain. No joint or muscle swelling or pain. No neck pain. SKIN: No rash NEUROLOGIC: No headache, vertigo, loss of consciousness, or change in strength/ sensation. ENDOCRINE: No increased thirst. No abnormal weight change. HEMATOLOGIC/LYMPHATIC: No anemia, easy bleeding, or history of blood clots. ALLERGIC/IMMUNOLOGIC: No hives or skin allergy. " *Physical Exam - Vital Signs Last Vital Signs Temp Pulse Resp BP Pulse Ox 97.6 F 80 18 107/75 97 03/17/18 22:55 03/17/18 22:55 03/17/18 22:55 03/17/18 22:55 03/17/18 22:55 - Physical Exam Comments: 03/18/18 00:33 "GENERAL: Awake, alert, and fully oriented, in no acute distress. HEAD: No signs of trauma EYES: PERRLA, EOMI, sclera anicteric, conjunctiva clear ENT: Auricles normal inspection, hearing grossly normal, nares patent, oropharynx clear without exudates. Moist mucosa NECK: Nontender, no stepoffs, Normal ROM, supple, no lymphadenopathy, JVD, or masses LUNGS: Breath sounds equal, clear to auscultation bilaterally. No wheezes, and no crackles HEART: Regular rate and rhythm, normal S1 and S2, no murmurs, rubs or gallops ABDOMEN: Soft, nontender, normoactive bowel sounds. No guarding, no rebound. No masses BACK: +L paraspinal tenderness to palpation. No midline spinal tenderness. EXTREMITIES: Normal range of motion, no edema. No clubbing or cyanosis. No cords, erythema, or tenderness NEUROLOGICAL: Cranial nerves II through XII intact. 5/5 strength and sensation in all extremities, Normal speech, normal gait, normal cerebellar function SKIN: Warm, Dry, normal turgor, no rashes or lesions noted. " Medical Decision Making - Medical Decision Making 03/18/18 00:25 52 M with acute on chronic lower back pain. Likely sciatic pain. Pt with no neuro deficits, no red flags for cauda equina or cord compression. - IM toradol - ortho f/u Pt ambulatory in ED without assistance. Pt is well appearing, with normal vitals. Clinically stable for DC at this time. I discussed the physical exam findings, ancillary test results and final diagnoses with the patient. I answered all of the patient's questions. The patient was satisfied with the care received and felt comfortable with the discharge plan and treatment plan. The patient agrees to follow up with the primary care physician within 24-72 hours. *DC/Admit/Observation/Transfer Diagnosis at time of Disposition: Back pain - Discharge Dispostion Disposition: HOME - Prescriptions Prescriptions: Naproxen 500 mg PO BID PRN #14 tablet PRN Reason: Pain - Referrals Referrals: Augustine Greenwood MD [Staff Physician] - - Patient Instructions Printed Discharge Instructions: DI for Low Back Pain Additional Instructions: Take naproxen every 12 hours as needed for pain. Be sure to rest to allow your back to recover. If you continue to have pain after 48 hours, call the number provided to make an appointment with an orthopedic surgeon. If you experience worsening pain, numbness or weakness in your legs, difficulty controlling your bowels or bladder, difficulty walking, or any other concerning symptoms, return to the ER immediately. - Post Discharge Activity - Attestations Physician Attestion: 03/18/18 00:31 I, Dr. Reuben Monson MD, attest that this document has been prepared under my direction and personally reviewed by me in its entirety. I further attest, that it accurately reflects all work, treatment, procedures and medical decision -making performed by me.
== END 2018-03-18 00:39 | disposition home or self-care (01) ==
LOC: JER 22:49
PROC: 3E0233Z Introduction of Anti-inflammatory into Muscle, Percutaneous Approach (ICD-10-PCS; principal; 2018-03-17)
DX: M54.32 Sciatica, left side (principal); F31.9 Bipolar disorder, unspecified; F41.9 Anxiety disorder, unspecified
CPT/HCPCS: 99281-25

== ENCOUNTER 2018-04-03 18:20 | Emergency (ER) | payer OTHER ==
[2018-04-03 18:26] VITALS: BMI 28.1
--- NOTE | 2018-04-03 19:52 | PDOC ---
History of Present Illness - General Chief Complaint: Pain Stated Complaint: HIP PAIN,EVAL Time Seen by Provider: 04/03/18 19:24 History Source: Patient Exam Limitations: No Limitations - History of Present Illness Initial Comments: 04/03/18 19:52 Patient is a 52 year old male with h/o bipolar disorder, schizophrenia, chronic tremors here with complaints of hearing voices telling him to hurt himself. He has no plan states he usually hears voices but they are increased. States compliance with his meds. Patient states he was at [facility] last week discharged this morning because there were no beds for the same complaint. PMD: Dr. Silvestre PMHX: as above PSCOHX: lives in a adult center ALL: NKDA Selected Entries 04/03/18 18:22 Temperature 97.5 F L Pulse Rate 88 Respiratory 16 Rate Blood Pressure 132/95 O2 Sat by Pulse 99 Oximetry (%) GENERAL/CONSTITUTIONAL: [No fever or chills. No weakness. No weight change.] HEAD, EYES, EARS, NOSE AND THROAT: [No change in vision. No ear pain or discharge. No sore throat.] CARDIOVASCULAR: [No chest pain or shortness of breath.] RESPIRATORY: [No cough, wheezing, or hemoptysis.] GASTROINTESTINAL: [No nausea, vomiting, diarrhea or constipation. No rectal bleeding.] GENITOURINARY: [No dysuria, frequency, or change in urination.] MUSCULOSKELETAL: [No joint or muscle swelling or pain. No neck or back pain.] SKIN AND BREASTS: [No rash or easy bruising.] NEUROLOGIC: [No headache, vertigo, loss of consciousness, or loss of sensation.] PSYCHIATRIC: (+) depression or anxiety.] ENDOCRINE: [No increased thirst. No abnormal weight change.] HEMATOLOGIC/LYMPHATIC: [No anemia, easy bleeding, or history of blood clots.] ALLERGIC/IMMUNOLOGIC: [No hives or skin allergy. No latex allergy.] GENERAL: [The patient is awake, alert, and fully oriented, in no acute distress. ] HEAD: [Normal with no signs of trauma.] EYES: [Pupils equal, round and reactive to light, extraocular movements intact, sclera anicteric, conjunctiva clear.] ENT: [Ears normal, nares patent, oropharynx clear without exudates. Moist mucous membranes.] NECK: [Normal range of motion, supple without lymphadenopathy, JVD, or masses.] LUNGS: [Breath sounds equal, clear to auscultation bilaterally. No wheezes, and no crackles.] HEART: [Regular rate and rhythm, normal S1 and S2 without murmur, rub.] ABDOMEN: [Soft, nontender, normoactive bowel sounds. No guarding, no rebound. No masses.] EXTREMITIES: [Normal range of motion, no edema. No clubbing or cyanosis. No cords, erythema, or tenderness.] NEUROLOGICAL: [Cranial nerves II through XII grossly intact. Normal speech, normal gait.] PSYCH: [Normal mood, odd affect.] SKIN: [Warm, Dry, normal turgor, no rashes or lesions noted.] Past History - Past Medical History Allergies/Adverse Reactions: Allergies Allergy/AdvReac Type Severity Reaction Status Date / Time No Known Allergies Allergy Verified 04/03/18 18:22 Home Medications: Ambulatory Orders [place] Carbonate [Eskalith -] 600 mg PO BID 11/24/16 Olanzapine [Zyprexa] 20 mg PO DAILY 11/24/16 COPD: No Psychiatric Problems: Yes (anxiety, bipolar, schizo affective) - Suicide/Smoking/Psychosocial Hx Smoking History: Never smoked Have you smoked in the past 12 months: No Information on smoking cessation initiated: No Hx Alcohol Use: No Drug/Substance Use Hx: No Substance Use Type: None *Physical Exam - Vital Signs Last Vital Signs Temp Pulse Resp BP Pulse Ox 97.5 F L 88 16 132/95 99 04/03/18 18:22 04/03/18 18:22 04/03/18 18:22 04/03/18 18:22 04/03/18 18:22 ED Treatment Course - LABORATORY CBC & Chemistry Diagram: 04/03/18 22:23 04/03/18 22:23 Medical Decision Making - Medical Decision Making 04/03/18 19:52 Patient is a 52 year old male with h/o bipolar disorder, schizophrenia, chronic tremors here with complaints of hearing voices telling him to hurt himself. Patient placed on one-to-one, labs obtained [facility] [employer]S[facility] Santi contacted for a psych eval, recommended to get lithium level and will see the patient in the morning EKG SR rate 82, NAD, (-) ST-T wave changes. 04/04/18 06:14 Patient has normal labs lithium level is still pending at this time. 0700 Endorsed AM team pending psych eval. *DC/Admit/Observation/Transfer Diagnosis at time of Disposition: Auditory hallucinations, Suicidal ideation - Referrals Referrals: Ingrid Bella MD [Primary Care Provider] - - Patient Instructions - Post Discharge Activity
--- NOTE | 2018-04-03 21:54 | PDOC ---
*Physical Exam - Vital Signs Last Vital Signs Temp Pulse Resp BP Pulse Ox 97.5 F L 88 16 132/95 99 04/03/18 18:22 04/03/18 18:22 04/03/18 18:22 04/03/18 18:22 04/03/18 18:22 Heart Score/ECG Review #1 ECG reviewed & interpreted by me at: 22:16 General ECG Interpretation: Sinus Rhythm, Normal Rate (82), Normal Intervals ( qrs 86, qtc 422), No acute ischemic changes ED Treatment Course - LABORATORY CBC & Chemistry Diagram: 04/03/18 22:23 04/03/18 22:23 Medical Decision Making - Medical Decision Making 04/03/18 21:53 Patient seen and evaluated with the nurse practitioner. I agree with the overall evaluation, assessment, and management with the following summary of visit: 52-year-old male presents with auditory hallucinations and suicidal ideations without plan. Vital signs stable Exam as noted. SI protocol initiated, placed on 1:1 with security Will clinically clear for psychiatric evaluation and likely transfer for admission. *DC/Admit/Observation/Transfer Diagnosis at time of Disposition: Auditory hallucinations, Suicidal ideation - Referrals Referrals: Ingrid Bella MD [Primary Care Provider] - - Patient Instructions - Post Discharge Activity
[2018-04-03 22:42] LABS: BASO % 0.9 % (0-2.0); EOS % 1.6 % (0-4.5); HEMATOCRIT 41.4 % (35.4-49); HEMOGLOBIN 13.8 GM/dL (11.7-16.9); LYMPH % 37.7 % (8-40); MCH 29.6 pg (25.7-33.7); MCHC 33.4 g/dl (32.0-35.9); MEAN CELL VOLUME 88.6 fl (80-96); MONO % 8.3 % (3.8-10.2); NEUT % 51.5 % (42.8-82.8); PLATELET COUNT 333 K/MM3 (134-434); RBC 4.67 M/mm3 (4.00-5.60); WHITE BLOOD COUNT 8.6 K/mm3 (4.0-10.0)
[2018-04-03 23:20] LABS: ALBUMIN 3.5 g/dl (3.4-5.0); ANION GAP 5 (8-16); BILIRUBIN,TOTAL 0.3 mg/dL (0.2-1.0); BLOOD UREA NITROGEN 12 mg/dL (7-18); CALCIUM 8.7 mg/dL (8.5-10.1); CHLORIDE 104 mmol/L (98-107); CO2 34 mmol/L (21-32); CREATININE 1.1 mg/dL (0.7-1.3); GLUCOSE,RANDOM 96 mg/dL (74-106); POTASSIUM 4.1 mmol/L (3.5-5.1); SALICYLATE < 1.70 mg/dL; SGOT/AST 29 U/L (15-37); SGPT/ALT 61 U/L (12-78); SODIUM 143 mmol/L (136-145); TOT PROT 7.2 g/dl (6.4-8.2)
[2018-04-03 23:28] LABS: ALK PHOS 87 U/L (45-117)
[2018-04-04 00:10] LABS: ACETAMINOPHEN <2.0 ug/mL
[2018-04-04 03:54] VITALS: TEMP 98.2
--- NOTE | 2018-04-04 07:07 | PDOC ---
*Physical Exam - Vital Signs Last Vital Signs Temp Pulse Resp BP Pulse Ox 98.2 F 72 17 106/66 98 04/04/18 07:03 04/04/18 07:03 04/04/18 07:03 04/04/18 07:03 04/04/18 07:03 - Physical Exam General Appearance: Yes: Nourished, Appropriately Dressed. No: Apparent Distress (Sitting on exam bed, quiet, making poor eye contact.) HEENT: positive: EOMI, SHANE Integumentary: positive: Normal Color, Dry, Warm Neurologic: positive: Fully Oriented, Alert, Normal Mood/Affect, Normal Response , Motor Strength 02/20 ED Treatment Course - LABORATORY CBC & Chemistry Diagram: 04/03/18 22:23 04/03/18 22:23 - ADDITIONAL ORDERS Additional order review: Laboratory Results 04/03/18 22:23 Sodium 143 Potassium 4.1 Chloride 104 Carbon Dioxide 34 H D Anion Gap 5 L BUN 12 Creatinine 1.1 Creat Clearance w eGFR > 60 Random Glucose 96 Calcium 8.7 Total Bilirubin 0.3 D AST 29 D ALT 61 D Alkaline Phosphatase 87 Total Protein 7.2 Albumin 3.5 TSH 2.64 D Salicylates < 1.70 Acetaminophen <2.0 Alcohol, Quantitative < 5.0 04/03/18 22:23 RBC 4.67 MCV 88.6 MCHC 33.4 RDW 14.0 MPV 7.0 L Neutrophils % 51.5 Lymphocytes % 37.7 Monocytes % 8.3 Eosinophils % 1.6 Basophils % 0.9 Medical Decision Making - Medical Decision Making 04/04/18 11:11 Patient is a 52-year-old male with past medical history of bipolar disorder, who presents to the emergency department today with suicidal ideation, auditory hallucinations. Patient was signed out to me by CRISTIANO Moraes. Patient was pending psychiatry consult. CRISTÓBAL Brannon, evaluated the patient at bedside. Patient has no concrete plan to commit suicide, and the voices are not saying anything specific at this time. Patient has good support system at [facility] His medication is given to him by a nurse and he does not have access to it. According to nurse practitioner, patient is not a [facility] candidate at this time. I am in agreement with the assessment by CRISTÓBAL Donato. Klonopin given for anxiety and patient feels better. Will discharge patient to call to [facility] at this time. Return precautions given. Patient understands all discharge instructions and all questions were answered. See evaluation by nurse practitioner Duncan Brannon *DC/Admit/Observation/Transfer Diagnosis at time of Disposition: Auditory hallucinations, Anxiety - Discharge Dispostion Disposition: HOME Condition at time of disposition: Stable Decision to Admit order: No - Prescriptions Prescriptions: clonazePAM [Klonopin -] 0.5 mg PO BID #10 tablet MDD 2 - Referrals Referrals: Ingrid Bella MD [Primary Care Provider] - - Patient Instructions Printed Discharge Instructions: DI for Suicidal Ideation-Adult Additional Instructions: Please take all your medications as prescribed. Please take the Klonopin as needed for anxiety the new prescriptions and sent here pharmacy. Follow-up with your psychiatrist on Thursday. Return to emergency department immediately if you have worsening suicidal ideation, ideas of self-harm, or if you have any changes in your symptoms. - Post Discharge Activity Forms/Work/School Notes: Back to Work
--- NOTE | 2018-04-04 08:55 | EKG ---
Test Reason : Blood Pressure : / mmHG Vent. Rate : 082 BPM Atrial Rate : 082 BPM P-R Int : 172 ms QRS Dur : 086 ms QT Int : 362 ms P-R-T Axes : 050 064 048 degrees QTc Int : 422 ms NORMAL SINUS RHYTHM NORMAL ECG WHEN COMPARED WITH ECG OF 18-FEB-2018 23:36, NO SIGNIFICANT CHANGE WAS FOUND Confirmed by RACQUEL SCOTT MD ([id number]) on 04/04/2018 8:55:12 AM Referred By: Confirmed By:RACQUEL SCOTT MD
--- NOTE | 2018-04-04 10:40 | PN ---
Mental Health Exam - Mental Status Exam Alert and Oriented to: Time, Place, Person Cognitive Function: Grossly Intact (VERY CONCRETE. ) Patient Appearance: Unkempt (TALL CIRCA 190 LBS. WEARS THICK GLASSES. ) Mood: Hopeful, Happy ('I FEEL SAFE HERE". "I WILL FEEL SAFER AT [facility] TOO :. " ) Affect: Mood Congruent, Flat, Constricted Patient Behavior: Dependent, Passive, Cooperative Speech Pattern: Clear Voice Loudness: Mildly Soft/Quiet Thought Process: Intact, Goal Oriented ("I WILL GO TO LIVE NEAR MY SISTER IN [place] IN APRIL". ) Thought Disorder: Not Present Hallucinations: Auditory ('I HEAR VOICES, BUT I AM NOT GOING TO KILL MYSELF". ) Suicidal Ideation: Past (TOOK OD AT 28 YO AFTER RELATIONSHIP ARGUEMENT WITH "GRACIELA MY LIFE LONG FRIEND"), No Plan Homicidal Ideation: None Insight/Judgement: Fair Sleep: Fair (NOISE IN ER DID NT ALLOW ME SLEEP. ) Appetite: Good Muscle strength/Tone: Normal Gait/Station: Normal (WALKED TO BATHROOM,)
--- NOTE | 2018-04-04 10:50 | PN ---
Progress Note (short form) - Note Progress Note: mR Pitts IS RESIDENT OF [address] [place] [address] MENTAL HEALTH RESIDENCE. hE CAME IN LAST DEANNE HE HEARS A MALE VOICE TELLING HIM TO HURT HIMSELF. hE WANTS TO GO BACK TO [facility], WHERE "I FELT SAFE" LAST SEPTEMBER 2017 AND FEBRUARY 2018 F0R 3 DAYS. cLIENT HAS A HISTORY OF sCHIZOAFFECTIVE R/O BIPOLAR DISORDER. HE IS FOLLOWED BY VIJAY DAVENPORT EVERY 2 WEEKS AT HIS RESIDENCE. HE ENDORSED THAT HIS MEDS ARE ADMINISTERED TO HIM THERE AND HAS SUPERVISED ACCESS ONLY. DENIES HAVING ACESS TO WEAPONS OR GUN. DOES NOT DRIVE, USES BUS. CLIENT TAKES OLANZAPINE 20 MG AT NIGHT. MAINTAINED ON LITHIUM 600MG PO BID WHICH IS ALSO PROTECTIVE AGAINST SUICIDE. aWAITING/PENDING LITHIUM LEVEL. CLIENT WORKED EVERY THURSDAY, IS HOPEFUL TO RETURN THIS WEEK, MAINTENANCE IN [facility] DISCHARGE PATIENT FROM THEIR ER YESTERDAY. CLIENT ENJOYS WATCH TV, TAKES WALKS TO DISTRACT HIM FROM VOICES. MR GASTON MAY RETURN TO SUPERVISED RESIDENCE TO FOLLOW WITH HER PROVIDER THERE. SPOKE WITH MS BRITANY QUINONEZ. Problem List - Problems (1) Auditory hallucinations Assessment/Plan: HEARING A MALE VOICE, BUT NOT WILLING TO HURT SELF Code(s): R44.0 - AUDITORY HALLUCINATIONS (2) Anxiety Assessment/Plan: ORDER KLONOPIN 1MG PO BID FOR 3 DAYS FOR ANXIETY 07/28. Code(s): F41.9 - ANXIETY DISORDER, UNSPECIFIED
[2018-04-04 11:03] LABS: COCAINE, UR NEGATIVE ng/ml (CUTOFF=300); PHENCYCLIDINE,URINE NEGATIVE ng/ml (CUTOFF=25); URINE BARBITURATES NEGATIVE ng/ml (CUTOFF=200)
[2018-04-04 11:08] LABS: METHADONE, UR NEGATIVE ng/ml (CUTOFF=300); OPIATES, URI NEGATIVE ng/ml (CUTOFF=300); URINE AMPHETAMINES NEGATIVE ng/ml (CUTOFF=500); URINE APPEARANCE CLEAR; URINE BENZODIAZEPINES NEGATIVE ng/ml (CUTOFF=200); URINE BILIRUBIN NEGATIVE (<2.0 mg/dL); URINE COLOR YELLOW; URINE GLUCOSE (UA) NEGATIVE (NEGATIVE); URINE KETONE NEGATIVE (NEGATIVE); URINE LEUK ESTERASE NEGATIVE (NEGATIVE); URINE NITRITE NEGATIVE (NEGATIVE); URINE PROTEIN NEGATIVE (NEGATIVE)
[2018-04-04] MEDS ORDERED: clonazePAM 0.5 MG TABLET PO ONE (11:18)
[2018-04-04 12:20] VITALS: BP 129/91; PULSE 88
--- NOTE | 2018-04-08 11:57 | EKG ---
Test Reason : Blood Pressure : / mmHG Vent. Rate : 067 BPM Atrial Rate : 067 BPM P-R Int : 162 ms QRS Dur : 082 ms QT Int : 380 ms P-R-T Axes : 049 071 059 degrees QTc Int : 401 ms NORMAL SINUS RHYTHM NORMAL ECG WHEN COMPARED WITH ECG OF 03-APR-2018 22:16, NO SIGNIFICANT CHANGE WAS FOUND Confirmed by HILARIA CLARKE MD ([id number]) on 04/08/2018 11:57:27 AM Referred By: Confirmed By:HILARIA CLARKE MD
== END 2018-04-04 13:07 | disposition home or self-care (01) ==
LOC: JER 18:20
DX: R44.0 Auditory hallucinations (principal); F41.9 Anxiety disorder, unspecified; F25.9 Schizoaffective disorder, unspecified; F31.9 Bipolar disorder, unspecified
CPT/HCPCS: 36415; 80053; 80178; 80307; 81003; 84443; 85025; 93005; 93010; 99284-25

== ENCOUNTER 2018-04-12 18:05 | Emergency (ER) | payer OTHER ==
[2018-04-12 18:34] VITALS: TEMP 98.6; BMI 25.9
--- NOTE | 2018-04-12 18:34 | PDOC ---
History of Present Illness - General Chief Complaint: Back Pain Stated Complaint: HIP PAIN Time Seen by Provider: 04/12/18 18:28 History Source: Patient Exam Limitations: No Limitations - History of Present Illness Initial Comments: This is a 52 YOM with h/o chronic back pain with radiation down LLE, anxiety, bipolar disorder, and schizoaffective disorder who p/w acute exacerbation of his chronic back pain radiating down the front of his right leg. He denies any recent injuries or falls, states this pain has been worse for about the past 3 hours today, and he has been getting episodes of this pain every day for the past three months but has not talked to any of his regular doctors about it. He denies any headache, neck pain, fever, chills, nausea, vomiting, constipation, dysuria, urinary or bowel incontinence, urinary retention, saddle anesthesia, leg weakness, difficulty walking, or other symptoms. He does not use IV drugs or have immune system conditions. He has been taking 650 mg Tylenol for the pain without relief. Past History - Past Medical History Allergies/Adverse Reactions: Allergies Allergy/AdvReac Type Severity Reaction Status Date / Time No Known Allergies Allergy Verified 04/12/18 18:27 Home Medications: Ambulatory Orders [place] Carbonate [Eskalith -] 600 mg PO BID 11/24/16 Olanzapine [Zyprexa] 20 mg PO DAILY 11/24/16 Naproxen [Naprosyn -] 375 mg PO BID #20 tablet 04/12/18 COPD: No Psychiatric Problems: Yes (anxiety, bipolar, schizo affective) - Suicide/Smoking/Psychosocial Hx Smoking History: Never smoked Have you smoked in the past 12 months: No Hx Alcohol Use: No Drug/Substance Use Hx: No Substance Use Type: None Review of Systems - Review of Systems Constitutional: No: Chills, Fever, Unexplained wgt Loss HEENTM: No: Nose Congestion, Throat Pain Respiratory: No: Cough, Shortness of Breath Cardiac (ROS): No: Chest Pain, Palpitations ABD/GI: No: Constipated, Diarrhea, Nausea, Vomiting : No: Burning, Dysuria Musculoskeletal: Yes: Back Pain, Other (hip pain). No: Neck Pain Integumentary: No: Bruising, Rash Neurological: No: Headache, Numbness, Tingling, Weakness, Dizziness Endocrine: No: Unexplained Weight Gain, Unexplained Weight Loss *Physical Exam - Physical Exam General Appearance: Yes: Nourished, Appropriately Dressed, Other (alert, oriented, well appearing, nontoxic, comfortable appearing adult male in no distress who answers questions appropriately). No: Apparent Distress HEENT: positive: EOMI, SHANE, Normal Voice, Hearing Grossly Normal. negative: Scleral Icterus (R), Scleral Icterus (L), Nasal Congestion Neck: positive: Trachea midline, Supple. negative: Tender, Rigid Respiratory/Chest: positive: Lungs Clear, Normal Breath Sounds. negative: Respiratory Distress, Crackles, Rhonchi, Stridor, Wheezing Cardiovascular: positive: Regular Rhythm, Regular Rate, S1, S2. negative: Edema , JVD, Murmur Gastrointestinal/Abdominal: positive: Normal Bowel Sounds, Soft. negative: Tender, Organomegaly, Pulsatile Mass, Guarding Musculoskeletal: positive: Normal Inspection, Other (old well healed midline lumbar scar from prior surgery, no stepoff or deformity). negative: Decreased Range of Motion, Vertebral Tenderness Extremity: positive: Normal Capillary Refill, Normal Inspection, Normal Range of Motion. negative: Tender, Cyanosis Integumentary: positive: Normal Color, Dry, Warm. 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 negative: EOM Palsy, Facial Droop, Numbness, Sensory Deficit, Confused, Disoriented Medical Decision Making - Medical Decision Making Pt with h/o with chronic back pain p/w acute exacerbation of same chronic back pain. No new red flag symptoms (see HPI). Initial Vital Signs Temp Pulse Resp BP Pulse Ox 98.6 F 77 16 117/66 99 04/12/18 18:15 04/12/18 18:15 04/12/18 18:15 04/12/18 18:15 04/12/18 18:15 Exam: well appearing, normal heart/lungs/abdomen, normal neuro exam with positive straight leg raise and ttp right sciatic nerve DDX IBNLT: Chronic low back pain with sciatica, DDD, DJD, osteophyte, compression fxr, other vertebral or spinous process fxr; much LL malignancy ( i.e. multiple myeloma), spinal epidural abscess, epidural hematoma, meningitis, or other more concerning etiology. W/U ordered: None TX ordered: Toradol Reassessment: Much improved, exam benign, normal neuro exam, patient wants to go back to [facility]SING HOME. Vital Signs Temperature 98.6 F 04/12/18 18:15 Pulse Rate 72 04/12/18 20:40 Respiratory Rate 18 04/12/18 20:40 Blood Pressure 116/72 04/12/18 20:40 O2 Sat by Pulse Oximetry (%) 96 04/12/18 20:40 The Pt has gotten significant relief of symptoms with ED medications. They are appropriate for discharge with close outpatient follow up. The Pt is comfortable with this plan and will follow up with their PCP in 1-3 days. They are counseled on importance of proactive pain management and neurosurgery follow up. E-Rx for Naprosyn sent to patient's pharmacy at his request. Specific return precautions are discussed and they will come back to the ER if necessary. *DC/Admit/Observation/Transfer Diagnosis at time of Disposition: Acute exacerbation of chronic low back pain Sciatica Qualifiers: Laterality: right Qualified Code(s): M54.31 - Sciatica, right side - Discharge Dispostion Disposition: [facility]M [facility]ACILITY Condition at time of disposition: Stable Decision to Admit order: No - Prescriptions Prescriptions: Naproxen [Naprosyn -] 375 mg PO BID #20 tablet - Referrals Referrals: Ingrid Bella MD [Primary Care Provider] - Roe Park MD [Staff Physician] - - Patient Instructions Printed Discharge Instructions: DI for Low Back Pain Additional Instructions: You were seen in the ER for an acute flare-up of your chronic back pain. We gave you an injection of Toradol which helped with your pain. We are giving you referral information for one of our neurosurgeons; please follow up with them or with your own neurosurgeon. Please also follow up with your regular PCP doctor in 1-3 days, and discuss changing your pain management regimen so that you can get on top of your chronic back pain before getting to the point where you need to come to the ER. Call their clinic as soon as possible, tell them you were seen in the ER for back pain, and tell them you need an appointment. If you have any new or worsening symptoms please come back to the ER at any time (24 hours a day), especially for fever, new numbness, new tingling new weakness, new urinary or bowel incontinence or retention, or other new symptoms. If you are having severe or life threatening symptoms, or symptoms that make it unsafe to drive or have someone drive you, please call 911. - Post Discharge Activity
[2018-04-12] MEDS ORDERED: KETOROLAC TROMETHAMINE 30 MG/1 ML VIAL IVPUSH ONE (18:41)
[2018-04-12] MEDS ORDERED: KETOROLAC TROMETHAMINE 30 MG/1 ML VIAL IM ONE (19:36)
[2018-04-12] MEDS ORDERED: KETOROLAC TROMETHAMINE 30 MG/1 ML VIAL ONE (19:38)
--- NOTE | 2018-04-12 20:36 | PDOC ---
Attending Attestation - Resident Resident Name: Nika Sheth - ED Attending Attestation I have performed the following: I have examined & evaluated the patient, The case was reviewed & discussed with the resident, I agree w/resident's findings & plan, Exceptions are as noted - HPI HPI: 04/12/18 20:36 52 yo male with exacerbation of chronic back pain - Physicial Exam PE: 04/13/18 01:38 PE wnwd 52 yo male p/w back pain -no new focal neuro deficits/no saddle anesthesia,no foot drop lungs cta b/l/ [facility]vs [id number] abd no rebound head ncat ext no cellulitis - Medical Decision Making 04/13/18 01:40 IMP chronic back pain javier=ymptoms improved and pt discharged home
[2018-04-12 20:53] VITALS: BP 116/72; PULSE 72
== END 2018-04-12 20:40 ==
LOC: JER 18:05
PROC: 3E0233Z Introduction of Anti-inflammatory into Muscle, Percutaneous Approach (ICD-10-PCS; principal; 2018-04-12)
DX: M54.41 Lumbago with sciatica, right side (principal); F31.9 Bipolar disorder, unspecified; F41.9 Anxiety disorder, unspecified; F25.9 Schizoaffective disorder, unspecified
CPT/HCPCS: 96372; 99282-25